=== PATIENT | male | born 1950 | race African-American/Black ===

== ENCOUNTER 2019-08-16 07:42 | Emergency (ER) | payer MEDICARE, MEDICAID ==
[~2019-08-16] VITALS: Ht 165.1 cm; Wt 115.0 kg
[~2019-08-16 07:42] MED LIST: ASPI-1497 PO; ATEN50TA PO; CLON0.2T PO; IBUP-2030 PO; INDA1.255 PO; LOSA100T32 PO; SIMV-43 PO; SIMV-46 PO
[2019-08-16] MEDS ORDERED: MAGNESIUM/ALUMINUM HYDROXIDE/SIMETHICONE 30ML UDC PO STA (09:44)
[2019-08-16] MEDS ORDERED: ONDANSETRON HCL 4MG/2ML INJ IV STA (09:44)
[2019-08-16 10:21] LABS: BASOPHILS % 1.4 % (0.0-2.0); EOSINOPHILS % 3.7 % (0.0-5.0); HEMATOCRIT. 37.3 % (42.0-52.0); HEMOGLOBIN. 11.2 g/dL (14.0-18.0); LYMPHOCYTES % 22.9 % (20.0-50.0); MEAN CORPUSCULAR HEMOGLOBIN 21.7 pg (28.0-32.0); MEAN CORPUSCULAR VOLUME 72.4 fL (80.0-94.0); MEAN PLATELET VOLUME 8.6 fl (7.4-10.4); MONOCYTES % 8.5 % (2.0-8.0); NEUTROPHILS % 63.5 % (40.0-76.0); PLATELET 262 x1000/uL (130-400); RED BLOOD CELL COUNT 5.15 mill/uL (4.7-6.1)
[2019-08-16 10:27] LABS: CHLORIDE 110 mEq/L (98-107)
[2019-08-16 10:29] LABS: INR 1.1; PROTHROMBIN TIME 10.9 sec (9.6-11.0)
[2019-08-16] MEDS ORDERED: FUROSEMIDE 40MG/4ML VIAL IV ONE (12:30)
[2019-08-16] MEDS ORDERED: ENALAPRIL 1.25MG/ML VIAL 1ML IV ONE (12:30)
[2019-08-16 14:28] LABS: CLARITY URINE CLEAR (CLEAR); COLOR URINE YELLOW (YELLOW); KETONES URINE NEGATIVE (NEGATIVE); LEUKOCYTE ESTERASE URINE TRACE (NEGATIVE); NITRITE URINE NEGATIVE (NEGATIVE); OCCULT BLOOD URINE NEGATIVE (NEGATIVE); PROTEIN URINE 1+ (NEGATIVE); SPECIFIC GRAVITY URINE 1.018 (1.005-1.030)
[2019-08-16 14:35] VITALS: BP 160/98
== END 2019-08-16 15:40 | disposition home or self-care (01) ==
LOC: ER 08:19
DX: I11.0 Hypertensive heart disease with heart failure (principal); I50.9 Heart failure, unspecified; I25.2 Old myocardial infarction; Z79.899 Other long term (current) drug therapy
CPT/HCPCS: 36415; 71045; 80053; 81003; 83690; 83880; 84484; 85025; 85610; 93005; 96374; 96375; 99284; J1940; J2405

== ENCOUNTER 2019-09-29 03:39 | Inpatient (IN) | payer MEDICARE, MEDICAID ==
[~2019-09-29] VITALS: Ht 165.1 cm; Wt 121.1 kg
[2019-09-29] VITALS (48 sets, daily range): BP systolic 105–214; BP diastolic 59–146
[2019-09-29] MEDS ORDERED: ALTEPLASE 100MG/VIAL IV NR (04:30)
[2019-09-29] MEDS ORDERED: ALTEPLASE 100MG/VIAL IV ONE ×2 (04:30)
[2019-09-29] MEDS ORDERED: CONTAINER EMPTY IV NR (04:30)
[2019-09-29] MEDS ORDERED: ALTEPLASE IV NR (04:30)
[2019-09-29 04:31] LABS: INR 0.9; PROTHROMBIN TIME 10.2 sec (9.6-11.0)
[2019-09-29 04:32] LABS: CHLORIDE 104 mEq/L (98-107)
[2019-09-29 04:40] LABS: ETHANOL BLOOD < 10 mg/dL
[2019-09-29 04:41] LABS: BASOPHILS % 1.1 % (0.0-2.0); HEMATOCRIT. 41.1 % (42.0-52.0); HEMOGLOBIN. 12.6 g/dL (14.0-18.0); LYMPHOCYTES % 26.1 % (20.0-50.0); MEAN CORPUSCULAR HEMOGLOBIN 21.6 pg (28.0-32.0); MEAN CORPUSCULAR VOLUME 70.7 fL (80.0-94.0); MEAN PLATELET VOLUME 9.4 fl (7.4-10.4); MONOCYTES % 7.5 % (2.0-8.0); NEUTROPHILS % 64.3 % (40.0-76.0); PLATELET 204 x1000/uL (130-400); RED BLOOD CELL COUNT 5.82 mill/uL (4.7-6.1); RED CELL DISTRIBUTION WIDTH 19.5 % (11.6-14.6)
[2019-09-29 04:42] LABS: LDL CHOLESTEROL 130 mg/dL (5-100)
[2019-09-29 04:43] LABS: CREATINE KINASE 312 IU/L (39-308)
[2019-09-29] MEDS ORDERED: LABETALOL 5MG/ML SYR 20 MG/4 ML SYRINGE IV ONE (04:45)
[2019-09-29] MEDS ORDERED: *NO ASPIRIN X 24 HOURS XX SCH (05:00)
[2019-09-29] MEDS ORDERED: DOCUSATE SODIUM 100MG CAPSULE PO PRN (09:45)
[2019-09-29] MEDS ORDERED: NITROGLYCERIN 0.4MG TABLET SL SL PRN (09:45)
[2019-09-29] MEDS ORDERED: DEXTROSE 50% WATER 50ML SYRINGE IV PRN (09:45)
[2019-09-29] MEDS ORDERED: IPRATROPIUM/ALBUTEROL 0.5-3(2.5)MG/3ML NEB NEB PRN (09:45)
[2019-09-29] MEDS ORDERED: NA PHOS,M-B/NA PHOS,DI-BA ENEMA 118ML PR PRN (09:45)
[2019-09-29] MEDS ORDERED: CLONIDINE 0.1MG TABLET PO PRN (09:45)
[2019-09-29] MEDS ORDERED: ZOLPIDEM TARTRATE 5MG TABLET PO PRN (09:45)
[2019-09-29] MEDS ORDERED: TRAMADOL 50MG TABLET PO PRN (09:45)
[2019-09-29] MEDS ORDERED: MAGNESIUM/ALUMINUM HYDROXIDE/SIMETHICONE 30ML UDC PO PRN (09:45)
[2019-09-29] MEDS: INSULIN LISPRO 100 UNITS/ML SUBCUT SCH ×3 (13:02→21:06)
[2019-09-29] MEDS: BLOOD SUGAR DIAGNOSTIC STRIP TEST SCH ×3 (13:02→20:55)
[2019-09-29] MEDS: FAMOTIDINE 20MG TABLET PO SCH (14:00)
[2019-09-29 15:43] LABS: CREATINE KINASE 313 IU/L (39-308); CREATINE KINASE MB FRACTION 5.9 ng/mL (0.5-3.6)
[2019-09-29] MEDS: INSULIN GLARGINE UD 100 UNITS/ML SYR SUBCUT SCH (17:47)
[2019-09-29] MEDS: ATORVASTATIN CALCIUM 40MG TABLET PO SCH (21:05)
[2019-09-29] MEDS: ONDANSETRON HCL 4MG/2ML INJ IV PRN (21:22)
[2019-09-29 21:35] LABS: T4 FREE 0.95 ng/dL (0.76-1.46)
[2019-09-29 21:56] LABS: FOLIC ACID (FOLATE) SERUM 12.2 ng/mL (>5.38)
[2019-09-30] VITALS (94 sets, daily range): BP systolic 99–185; BP diastolic 30–114
[2019-09-30 00:09] LABS: CLARITY URINE CLEAR (CLEAR); COLOR URINE YELLOW (YELLOW); KETONES URINE NEGATIVE (NEGATIVE); LEUKOCYTE ESTERASE URINE NEGATIVE (NEGATIVE); NITRITE URINE NEGATIVE (NEGATIVE); OCCULT BLOOD URINE 2+ (NEGATIVE); PH URINE 6.5 (4.5-8.0); PROTEIN URINE 1+ (NEGATIVE)
[2019-09-30 00:13] LABS: CREATINE KINASE 468 IU/L (39-308)
[2019-09-30 00:14] LABS: CREATINE KINASE MB FRACTION 6.6 ng/mL (0.5-3.6)
[2019-09-30 00:22] LABS: *AMPHETAMINES SCREEN URINE NEGATIVE (NEGATIVE); *BARBITURATES SCREEN URINE NEGATIVE (NEGATIVE); *BENZODIAZEPINES SCREEN URINE NEGATIVE (NEGATIVE); *COCAINE SCREEN URINE NEGATIVE (NEGATIVE); OPIATES URINE SCREEN NEGATIVE (NEGATIVE)
[2019-09-30 00:24] LABS: CANNABINOID URINE SCREEN NEGATIVE (NEGATIVE); PHENCYCLIDINE URINE SCREEN NEGATIVE (NEGATIVE)
[2019-09-30] MEDS: INSULIN LISPRO 100 UNITS/ML SUBCUT SCH ×4 (06:15→20:59)
[2019-09-30] MEDS: BLOOD SUGAR DIAGNOSTIC STRIP TEST SCH ×4 (06:44→20:48)
[2019-09-30] MEDS: FAMOTIDINE 20MG TABLET PO SCH (10:15)
[2019-09-30] MEDS: INSULIN GLARGINE UD 100 UNITS/ML SYR SUBCUT SCH (10:15)
[2019-09-30] MEDS: CYANOCOBALAMIN 1000MCG/ML VIAL IM SCH (15:56)
[2019-09-30] MEDS: ATORVASTATIN CALCIUM 40MG TABLET PO SCH (20:58)
[2019-10-01] VITALS (93 sets, daily range): BP systolic 96–169; BP diastolic 23–113
[2019-10-01] MEDS: BLOOD SUGAR DIAGNOSTIC STRIP TEST SCH ×4 (05:45→20:53)
[2019-10-01] MEDS: INSULIN LISPRO 100 UNITS/ML SUBCUT SCH ×4 (05:46→21:00)
[2019-10-01] MEDS ORDERED: CLOPIDOGREL 75MG TABLET PO SCH (09:00)
[2019-10-01] MEDS: FAMOTIDINE 20MG TABLET PO SCH (10:22)
[2019-10-01] MEDS: CYANOCOBALAMIN 1000MCG/ML VIAL IM SCH (10:22)
[2019-10-01] MEDS ORDERED: INSULIN GLARGINE UD 100 UNITS/ML SYR SUBCUT NR (12:00)
[2019-10-01] MEDS: ONDANSETRON HCL 4MG/2ML INJ IV PRN (14:49)
[2019-10-01 15:15] LABS: METHADONE URINE SCREEN NEGATIVE (NEGATIVE)
[2019-10-01] MEDS ORDERED: DILTIAZEM HCL 125 MG in DEXT 5% WATER 100 ML IV PRN (15:15)
[2019-10-01] MEDS ORDERED: DIGOXIN 500MCG/2ML AMP IV NR (15:15)
[2019-10-01 15:26] LABS: BASOPHILS % 0.7 % (0.0-2.0); EOSINOPHILS % 0.1 % (0.0-5.0); HEMATOCRIT. 37.6 % (42.0-52.0); HEMOGLOBIN. 11.2 g/dL (14.0-18.0); LYMPHOCYTES % 13.4 % (20.0-50.0); MEAN CORPUSCULAR HEMOGLOBIN 21.1 pg (28.0-32.0); MEAN CORPUSCULAR VOLUME 70.8 fL (80.0-94.0); MEAN PLATELET VOLUME 9.1 fl (7.4-10.4); MONOCYTES % 12.8 % (2.0-8.0); PLATELET 211 x1000/uL (130-400); RED BLOOD CELL COUNT 5.32 mill/uL (4.7-6.1); RED CELL DISTRIBUTION WIDTH 19.3 % (11.6-14.6)
[2019-10-01 15:29] LABS: CHLORIDE 103 mEq/L (98-107)
[2019-10-01] MEDS: DILTIAZEM HCL 125 MG in DEXT 5% WATER 100 ML IV PRN (15:40)
[2019-10-01] MEDS: SODIUM CHLORIDE 0.9% 1,000 ML IV SCH (16:57)
[2019-10-01] MEDS: ATORVASTATIN CALCIUM 40MG TABLET PO SCH (20:57)
[2019-10-02] VITALS (71 sets, daily range): BP systolic 92–163; BP diastolic 52–109
[2019-10-02] MEDS: ONDANSETRON HCL 4MG/2ML INJ IV PRN (03:12)
[2019-10-02] MEDS: SODIUM CHLORIDE 0.9% 1,000 ML IV SCH ×2 (04:37→19:40)
[2019-10-02 05:41] LABS: CHLORIDE 104 mEq/L (98-107)
[2019-10-02 05:44] LABS: BASOPHILS % 0.7 % (0.0-2.0); EOSINOPHILS % 0.4 % (0.0-5.0); HEMATOCRIT. 36.2 % (42.0-52.0); HEMOGLOBIN. 10.7 g/dL (14.0-18.0); LYMPHOCYTES % 17.1 % (20.0-50.0); MEAN CORPUSCULAR HEMOGLOBIN 21.4 pg (28.0-32.0); MEAN PLATELET VOLUME 9.5 fl (7.4-10.4); MONOCYTES % 13.6 % (2.0-8.0); NEUTROPHILS % 68.2 % (40.0-76.0); PLATELET 199 x1000/uL (130-400); RED BLOOD CELL COUNT 5.03 mill/uL (4.7-6.1); RED CELL DISTRIBUTION WIDTH 19.1 % (11.6-14.6)
[2019-10-02] MEDS: BLOOD SUGAR DIAGNOSTIC STRIP TEST SCH ×4 (06:15→20:55)
[2019-10-02] MEDS: INSULIN LISPRO 100 UNITS/ML SUBCUT SCH ×4 (06:22→20:55)
[2019-10-02] MEDS: FAMOTIDINE 20MG TABLET PO SCH (08:23)
[2019-10-02] MEDS: CYANOCOBALAMIN 1000MCG/ML VIAL IM SCH (08:23)
[2019-10-02] MEDS: TAMSULOSIN HCL 0.4MG SR CAPSULE PO SCH ×2 (08:57→20:56)
[2019-10-02] MEDS: DILTIAZEM HCL 60MG TABLET PO SCH ×2 (08:57→20:54)
[2019-10-02] MEDS: ENOXAPARIN 100MG/ML SYR SUBCUT SCH ×2 (08:59→20:54)
[2019-10-02] MEDS: DUTASTERIDE 0.5MG CAPSULE PO SCH (09:00)
[2019-10-02] MEDS: INSULIN GLARGINE UD 100 UNITS/ML SYR SUBCUT SCH (11:08)
[2019-10-02] MEDS: ATORVASTATIN CALCIUM 40MG TABLET PO SCH (20:54)
[2019-10-03] VITALS (40 sets, daily range): BP systolic 125–175; BP diastolic 66–145
[2019-10-03] MEDS: ONDANSETRON HCL 4MG/2ML INJ IV PRN (00:54)
[2019-10-03] MEDS: BLOOD SUGAR DIAGNOSTIC STRIP TEST SCH ×4 (05:59→21:04)
[2019-10-03] MEDS: INSULIN LISPRO 100 UNITS/ML SUBCUT SCH ×4 (06:00→21:00)
[2019-10-03] MEDS: FAMOTIDINE 20MG TABLET PO SCH (08:53)
[2019-10-03] MEDS: CYANOCOBALAMIN 1000MCG/ML VIAL IM SCH (08:54)
[2019-10-03] MEDS: DILTIAZEM HCL 60MG TABLET PO SCH ×2 (08:54→21:09)
[2019-10-03] MEDS: ENOXAPARIN 100MG/ML SYR SUBCUT SCH ×2 (08:55→21:09)
[2019-10-03] MEDS: SODIUM CHLORIDE 0.9% 1,000 ML IV SCH ×2 (09:00→22:30)
[2019-10-03] MEDS: TAMSULOSIN HCL 0.4MG SR CAPSULE PO SCH ×2 (09:00→20:52)
[2019-10-03] MEDS: DUTASTERIDE 0.5MG CAPSULE PO SCH (09:00)
[2019-10-03] MEDS: INSULIN GLARGINE UD 100 UNITS/ML SYR SUBCUT SCH (10:46)
[2019-10-03] MEDS: HYDRALAZINE HCL 50MG TABLET NG SCH ×2 (14:42→21:13)
[2019-10-03] MEDS: ATORVASTATIN CALCIUM 40MG TABLET PO SCH (21:08)
[2019-10-04] VITALS (48 sets, daily range): BP systolic 117–199; BP diastolic 44–129
[2019-10-04] MEDS: HYDRALAZINE HCL 50MG TABLET NG SCH ×3 (05:31→21:23)
[2019-10-04] MEDS: BLOOD SUGAR DIAGNOSTIC STRIP TEST SCH ×4 (05:31→21:25)
[2019-10-04] MEDS: INSULIN LISPRO 100 UNITS/ML SUBCUT SCH ×4 (06:01→21:28)
[2019-10-04] MEDS: DUTASTERIDE 0.5MG CAPSULE PO SCH (09:00)
[2019-10-04] MEDS: TAMSULOSIN HCL 0.4MG SR CAPSULE PO SCH ×2 (09:00→21:00)
[2019-10-04] MEDS: FAMOTIDINE 20MG TABLET PO SCH (09:18)
[2019-10-04] MEDS: ENOXAPARIN 100MG/ML SYR SUBCUT SCH ×2 (09:19→21:29)
[2019-10-04] MEDS: CYANOCOBALAMIN 1000MCG/ML VIAL IM SCH (09:20)
[2019-10-04] MEDS: INSULIN GLARGINE UD 100 UNITS/ML SYR SUBCUT SCH (10:15)
[2019-10-04] MEDS: DILTIAZEM HCL 60MG TABLET PO SCH ×2 (10:17→21:25)
[2019-10-04] MEDS: GUAIFENESIN 200MG/10ML SUGAR FREE UDC PO PRN ×2 (10:48→15:50)
[2019-10-04] MEDS: SODIUM CHLORIDE 0.9% 1,000 ML IV SCH (12:09)
[2019-10-04] MEDS: ATORVASTATIN CALCIUM 40MG TABLET PO SCH (21:24)
[2019-10-05] VITALS (35 sets, daily range): BP systolic 88–185; BP diastolic 55–115
[2019-10-05] MEDS: SODIUM CHLORIDE 0.9% 1,000 ML IV SCH ×2 (01:20→16:18)
[2019-10-05] MEDS: DILTIAZEM HCL 125 MG in DEXT 5% WATER 100 ML IV PRN (03:27)
[2019-10-05] MEDS: HYDRALAZINE HCL 50MG TABLET NG SCH ×3 (06:31→22:48)
[2019-10-05] MEDS: BLOOD SUGAR DIAGNOSTIC STRIP TEST SCH ×4 (06:32→20:59)
[2019-10-05] MEDS: INSULIN LISPRO 100 UNITS/ML SUBCUT SCH ×4 (06:34→20:56)
[2019-10-05] MEDS: TAMSULOSIN HCL 0.4MG SR CAPSULE PO SCH ×2 (09:00→21:00)
[2019-10-05] MEDS: DILTIAZEM HCL 60MG TABLET PO SCH ×2 (09:09→22:44)
[2019-10-05] MEDS: CYANOCOBALAMIN 1000MCG/ML VIAL IM SCH (09:09)
[2019-10-05] MEDS: FAMOTIDINE 20MG TABLET PO SCH (09:10)
[2019-10-05] MEDS: DUTASTERIDE 0.5MG CAPSULE PO SCH (09:10)
[2019-10-05] MEDS: ENOXAPARIN 100MG/ML SYR SUBCUT SCH ×2 (09:11→20:59)
[2019-10-05] MEDS: INSULIN GLARGINE UD 100 UNITS/ML SYR SUBCUT SCH (10:58)
[2019-10-05] MEDS: ATORVASTATIN CALCIUM 40MG TABLET PO SCH (22:43)
[2019-10-06] VITALS (105 sets, daily range): BP systolic 62–152; BP diastolic 37–102
[2019-10-06] MEDS ORDERED: PROPOFOL 10MG/ML 100ML 100 ML IV ONE (02:15)
[2019-10-06 02:31] LABS: BG BASE EXCESS -3.3 mmol/L (-2.0-2.0); BG CARBOXYHEMOGLOBIN 0.8 % (0.5-1.5); BG DEOXYHEMOGLOBIN 0.1 % (0.0-5.0); BG FRACTION INSPIRED OXYGEN 100; BG HCO3 ACT 23.4 mmol/L (22.0-26.0); BG METHEMOGLOBIN 0.4 % (0.0-1.5); BG OXYGEN SATURATION 99.9 % (92.0-98.5); BG OXYHEMOGLOBIN 98.7 % (94.0-97.0); BG PCO2 48.8 mmHg (35.0-45.0); BG PH 7.298 (7.350-7.450); BG PO2 406.6 mmHg (75.0-100.0); BG SAMPLE SITE LEFT FEMORAL; BG TIDAL VOLUME(mL) 600 mL; BG TOTAL HEMOGLOBIN 11.3 g/dL (12.0-18.0); BG VENT MODE VENT - A/C; BG VENT RATE 14 set
[2019-10-06] MEDS: NOREPINEPHRINE 8 MG in DEXT 5% WATER 242 ML IV PRN ×3 (02:40→16:34)
[2019-10-06] MEDS: SODIUM CHLORIDE 0.9% 1,000 ML IV SCH ×2 (03:32→16:34)
[2019-10-06] MEDS ORDERED: PHENYLEPHRINE 40 MG in DEXT 5% WATER 246 ML IV PRN (04:00)
[2019-10-06 05:49] LABS: HEMATOCRIT. 38.5 % (42.0-52.0); HEMOGLOBIN. 11.1 g/dL (14.0-18.0); MEAN CORPUSCULAR HEMOGLOBIN 21.5 pg (28.0-32.0); MEAN CORPUSCULAR VOLUME 74.5 fL (80.0-94.0); MEAN PLATELET VOLUME 9.5 fl (7.4-10.4); PLATELET 277 x1000/uL (130-400); RED BLOOD CELL COUNT 5.16 mill/uL (4.7-6.1); RED CELL DISTRIBUTION WIDTH 19.1 % (11.6-14.6)
[2019-10-06] MEDS: HYDRALAZINE HCL 50MG TABLET NG SCH ×3 (06:00→21:17)
[2019-10-06] MEDS: INSULIN LISPRO 100 UNITS/ML SUBCUT SCH ×4 (06:05→21:18)
[2019-10-06] MEDS: BLOOD SUGAR DIAGNOSTIC STRIP TEST SCH ×4 (06:06→21:00)
[2019-10-06 06:14] LABS: CHLORIDE 104 mEq/L (98-107)
[2019-10-06 06:23] LABS: CREATINE KINASE 518 IU/L (39-308)
[2019-10-06 07:05] LABS: PLATELET ESTIMATE NORMAL
[2019-10-06] MEDS: DUTASTERIDE 0.5MG CAPSULE PO SCH (08:46)
[2019-10-06] MEDS: FAMOTIDINE 20MG TABLET PO SCH (08:46)
[2019-10-06] MEDS: PROPOFOL 10MG/ML 100ML 100 ML IV PRN ×3 (08:46→21:19)
[2019-10-06] MEDS: TAMSULOSIN HCL 0.4MG SR CAPSULE PO SCH ×2 (08:47→21:18)
[2019-10-06] MEDS: CYANOCOBALAMIN 1000MCG/ML VIAL IM SCH (08:47)
[2019-10-06] MEDS: DILTIAZEM HCL 60MG TABLET PO SCH ×2 (08:48→21:17)
[2019-10-06] MEDS: ENOXAPARIN 100MG/ML SYR SUBCUT SCH ×2 (08:49→21:19)
[2019-10-06 09:03] LABS: BG BASE EXCESS 3.4 mmol/L (-2.0-2.0); BG CARBOXYHEMOGLOBIN 1.4 % (0.5-1.5); BG DEOXYHEMOGLOBIN 1.9 % (0.0-5.0); BG FRACTION INSPIRED OXYGEN 40; BG HCO3 ACT 25.2 mmol/L (22.0-26.0); BG METHEMOGLOBIN 0.1 % (0.0-1.5); BG OXYGEN SATURATION 98.1 % (92.0-98.5); BG OXYHEMOGLOBIN 96.6 % (94.0-97.0); BG PH 7.543 (7.350-7.450); BG PO2 89.9 mmHg (75.0-100.0); BG SAMPLE SITE RIGHT RADIAL; BG TIDAL VOLUME(mL) 600 mL; BG TOTAL HEMOGLOBIN 12.2 g/dL (12.0-18.0); BG VENT MODE VENT - A/C; BG VENT RATE 18 set
[2019-10-06] MEDS: LEVETIRACETAM 500MG PREMIX 100 ML IV SCH ×2 (11:39→21:16)
[2019-10-06] MEDS: INSULIN GLARGINE UD 100 UNITS/ML SYR SUBCUT SCH (11:40)
[2019-10-06] MEDS ORDERED: PROPOFOL 10MG/ML 100ML 100 ML IV PRN (11:45)
[2019-10-06] MEDS: IPRATROPIUM/ALBUTEROL 0.5-3(2.5)MG/3ML NEB HHN SCH ×2 (12:36→21:12)
[2019-10-06] MEDS: METRONIDAZOLE 500 MG PREMIX 100 ML IV SCH ×2 (13:22→21:16)
[2019-10-06] MEDS: CEFEPIME 1,000 MG in DEXTROSE 5% WATER 50 ML IV SCH ×2 (13:22→23:00)
[2019-10-06] MEDS: ATORVASTATIN CALCIUM 40MG TABLET PO SCH (21:17)
[2019-10-07] VITALS (73 sets, daily range): BP systolic 90–125; BP diastolic 53–83
[2019-10-07] MEDS: IPRATROPIUM/ALBUTEROL 0.5-3(2.5)MG/3ML NEB HHN SCH ×4 (01:35→21:03)
[2019-10-07] MEDS: PROPOFOL 10MG/ML 100ML 100 ML IV PRN ×4 (03:00→23:59)
[2019-10-07] MEDS: HYDRALAZINE HCL 50MG TABLET NG SCH ×3 (05:23→22:00)
[2019-10-07] MEDS: METRONIDAZOLE 500 MG PREMIX 100 ML IV SCH ×3 (05:24→21:41)
[2019-10-07] MEDS: SODIUM CHLORIDE 0.9% 1,000 ML IV SCH ×2 (05:26→21:55)
[2019-10-07 05:31] LABS: CHLORIDE 109 mEq/L (98-107)
[2019-10-07 05:37] LABS: BASOPHILS % 0.8 % (0.0-2.0); EOSINOPHILS % 1.8 % (0.0-5.0); HEMATOCRIT. 31.5 % (42.0-52.0); HEMOGLOBIN. 9.2 g/dL (14.0-18.0); LYMPHOCYTES % 8.3 % (20.0-50.0); MEAN CORPUSCULAR HEMOGLOBIN 21.3 pg (28.0-32.0); MEAN CORPUSCULAR VOLUME 72.6 fL (80.0-94.0); MEAN PLATELET VOLUME 8.5 fl (7.4-10.4); MONOCYTES % 11.4 % (2.0-8.0); NEUTROPHILS % 77.7 % (40.0-76.0); PLATELET 244 x1000/uL (130-400); RED BLOOD CELL COUNT 4.34 mill/uL (4.7-6.1); RED CELL DISTRIBUTION WIDTH 19.3 % (11.6-14.6)
[2019-10-07 05:43] LABS: PHOSPHORUS 2.1 mg/dL (2.5-4.9)
[2019-10-07] MEDS: BLOOD SUGAR DIAGNOSTIC STRIP TEST SCH ×4 (06:02→21:00)
[2019-10-07] MEDS: INSULIN LISPRO 100 UNITS/ML SUBCUT SCH ×3 (06:03→21:00)
[2019-10-07] MEDS: CEFEPIME 1,000 MG in DEXTROSE 5% WATER 50 ML IV SCH ×2 (08:23→21:41)
[2019-10-07] MEDS: LEVETIRACETAM 500MG PREMIX 100 ML IV SCH ×2 (08:23→21:42)
[2019-10-07] MEDS: DUTASTERIDE 0.5MG CAPSULE PO SCH (08:24)
[2019-10-07] MEDS: ENOXAPARIN 100MG/ML SYR SUBCUT SCH ×2 (08:24→21:59)
[2019-10-07] MEDS: TAMSULOSIN HCL 0.4MG SR CAPSULE PO SCH ×2 (08:25→21:56)
[2019-10-07] MEDS: FAMOTIDINE 20MG TABLET PO SCH ×2 (08:26→10:11)
[2019-10-07 08:47] LABS: BG BASE EXCESS 1.1 mmol/L (-2.0-2.0); BG CARBOXYHEMOGLOBIN 0.3 % (0.5-1.5); BG FRACTION INSPIRED OXYGEN 40; BG HCO3 ACT 24.3 mmol/L (22.0-26.0); BG METHEMOGLOBIN 0.2 % (0.0-1.5); BG OXYHEMOGLOBIN 98.5 % (94.0-97.0); BG PCO2 33.5 mmHg (35.0-45.0); BG PH 7.479 (7.350-7.450); BG PO2 162.5 mmHg (75.0-100.0); BG SAMPLE SITE RIGHT RADIAL; BG TIDAL VOLUME(mL) 550 mL; BG TOTAL HEMOGLOBIN 9.5 g/dL (12.0-18.0); BG VENT MODE VENT - A/C; BG VENT RATE 14 set
[2019-10-07] MEDS: DILTIAZEM HCL 60MG TABLET PO SCH ×2 (09:00→21:57)
[2019-10-07] MEDS: INSULIN GLARGINE UD 100 UNITS/ML SYR SUBCUT SCH (10:12)
[2019-10-07] MEDS: ATORVASTATIN CALCIUM 40MG TABLET PO SCH (21:56)
[2019-10-08] VITALS (49 sets, daily range): BP systolic 90–137; BP diastolic 52–81
[2019-10-08] MEDS: IPRATROPIUM/ALBUTEROL 0.5-3(2.5)MG/3ML NEB HHN SCH ×4 (02:04→20:17)
[2019-10-08] MEDS: HYDRALAZINE HCL 50MG TABLET NG SCH ×3 (06:00→22:00)
[2019-10-08] MEDS: BLOOD SUGAR DIAGNOSTIC STRIP TEST SCH ×4 (07:00→21:00)
[2019-10-08] MEDS: INSULIN LISPRO 100 UNITS/ML SUBCUT SCH ×4 (07:00→21:00)
[2019-10-08] MEDS: PROPOFOL 10MG/ML 100ML 100 ML IV PRN ×3 (07:02→18:20)
[2019-10-08] MEDS: METRONIDAZOLE 500 MG PREMIX 100 ML IV SCH ×3 (07:04→21:12)
[2019-10-08] MEDS: SODIUM CHLORIDE 0.9% 1,000 ML IV SCH (08:08)
[2019-10-08] MEDS: LEVETIRACETAM 500MG PREMIX 100 ML IV SCH ×2 (08:08→21:12)
[2019-10-08] MEDS: CEFEPIME 1,000 MG in DEXTROSE 5% WATER 50 ML IV SCH ×2 (08:08→21:12)
[2019-10-08] MEDS: TAMSULOSIN HCL 0.4MG SR CAPSULE PO SCH ×2 (08:09→21:47)
[2019-10-08] MEDS: ENOXAPARIN 100MG/ML SYR SUBCUT SCH ×2 (08:09→21:46)
[2019-10-08] MEDS: DUTASTERIDE 0.5MG CAPSULE PO SCH (08:09)
[2019-10-08] MEDS: DILTIAZEM HCL 60MG TABLET PO SCH ×2 (08:09→21:00)
[2019-10-08] MEDS: FAMOTIDINE 20MG TABLET PO SCH (08:10)
[2019-10-08 08:49] LABS: BG BASE EXCESS -1.1 mmol/L (-2.0-2.0); BG CARBOXYHEMOGLOBIN 0.6 % (0.5-1.5); BG DEOXYHEMOGLOBIN 0.7 % (0.0-5.0); BG FRACTION INSPIRED OXYGEN 40; BG HCO3 ACT 22.7 mmol/L (22.0-26.0); BG METHEMOGLOBIN 0.3 % (0.0-1.5); BG OXYGEN SATURATION 99.3 % (92.0-98.5); BG OXYHEMOGLOBIN 98.4 % (94.0-97.0); BG PCO2 34.9 mmHg (35.0-45.0); BG PH 7.431 (7.350-7.450); BG PO2 161.9 mmHg (75.0-100.0); BG SAMPLE SITE RIGHT RADIAL; BG TIDAL VOLUME(mL) 550 mL; BG TOTAL HEMOGLOBIN 12.5 g/dL (12.0-18.0); BG VENT MODE VENT - A/C; BG VENT RATE 14 set
[2019-10-08] MEDS: INSULIN GLARGINE UD 100 UNITS/ML SYR SUBCUT SCH (09:48)
[2019-10-08] MEDS: ATORVASTATIN CALCIUM 40MG TABLET PO SCH (21:13)
[2019-10-09] VITALS (49 sets, daily range): BP systolic 85–152; BP diastolic 57–84
[2019-10-09] MEDS: PROPOFOL 10MG/ML 100ML 100 ML IV PRN ×5 (00:41→21:01)
[2019-10-09] MEDS: IPRATROPIUM/ALBUTEROL 0.5-3(2.5)MG/3ML NEB HHN SCH ×4 (01:34→20:48)
[2019-10-09] MEDS: SODIUM CHLORIDE 0.9% 1,000 ML IV SCH ×2 (03:40→12:07)
[2019-10-09] MEDS: HYDRALAZINE HCL 50MG TABLET NG SCH ×3 (06:00→22:00)
[2019-10-09] MEDS: METRONIDAZOLE 500 MG PREMIX 100 ML IV SCH ×3 (06:35→21:07)
[2019-10-09] MEDS: BLOOD SUGAR DIAGNOSTIC STRIP TEST SCH ×4 (06:35→21:00)
[2019-10-09] MEDS: INSULIN LISPRO 100 UNITS/ML SUBCUT SCH ×4 (07:00→21:00)
[2019-10-09 07:48] LABS: BG BASE EXCESS -1.1 mmol/L (-2.0-2.0); BG CARBOXYHEMOGLOBIN 0.5 % (0.5-1.5); BG DEOXYHEMOGLOBIN 0.8 % (0.0-5.0); BG HCO3 ACT 23.5 mmol/L (22.0-26.0); BG METHEMOGLOBIN 0.1 % (0.0-1.5); BG OXYGEN SATURATION 99.2 % (92.0-98.5); BG OXYHEMOGLOBIN 98.6 % (94.0-97.0); BG PCO2 38.5 mmHg (35.0-45.0); BG PH 7.403 (7.350-7.450); BG PO2 150.7 mmHg (75.0-100.0); BG SAMPLE SITE RIGHT RADIAL; BG TIDAL VOLUME(mL) 550 mL; BG TOTAL HEMOGLOBIN 9.4 g/dL (12.0-18.0); BG VENT MODE VENT - A/C; BG VENT RATE 14 set
[2019-10-09] MEDS: CEFEPIME 1,000 MG in DEXTROSE 5% WATER 50 ML IV SCH ×2 (08:32→20:44)
[2019-10-09] MEDS: LEVETIRACETAM 500MG PREMIX 100 ML IV SCH ×2 (08:32→20:44)
[2019-10-09] MEDS: FAMOTIDINE 20MG TABLET PO SCH (08:34)
[2019-10-09] MEDS: DOCUSATE SODIUM SUGAR FREE 100MG/10ML UDC NG PRN (08:34)
[2019-10-09] MEDS: TAMSULOSIN HCL 0.4MG SR CAPSULE PO SCH ×2 (08:34→20:59)
[2019-10-09] MEDS: DUTASTERIDE 0.5MG CAPSULE PO SCH (08:34)
[2019-10-09] MEDS: DILTIAZEM HCL 60MG TABLET PO SCH ×2 (08:34→21:00)
[2019-10-09] MEDS: ENOXAPARIN 100MG/ML SYR SUBCUT SCH ×2 (08:35→21:06)
[2019-10-09] MEDS: INSULIN GLARGINE UD 100 UNITS/ML SYR SUBCUT SCH (09:43)
[2019-10-09] MEDS: ATORVASTATIN CALCIUM 40MG TABLET PO SCH (20:58)
[2019-10-10] VITALS (48 sets, daily range): BP systolic 97–124; BP diastolic 53–74
[2019-10-10] MEDS: PROPOFOL 10MG/ML 100ML 100 ML IV PRN ×2 (02:04→06:09)
[2019-10-10] MEDS: IPRATROPIUM/ALBUTEROL 0.5-3(2.5)MG/3ML NEB HHN SCH ×3 (04:19→20:05)
[2019-10-10] MEDS: METRONIDAZOLE 500 MG PREMIX 100 ML IV SCH ×3 (05:39→21:41)
[2019-10-10] MEDS: HYDRALAZINE HCL 50MG TABLET NG SCH ×3 (06:00→22:26)
[2019-10-10] MEDS: SODIUM CHLORIDE 0.9% 1,000 ML IV SCH ×2 (06:00→13:59)
[2019-10-10] MEDS: INSULIN LISPRO 100 UNITS/ML SUBCUT SCH ×4 (07:00→21:00)
[2019-10-10] MEDS: BLOOD SUGAR DIAGNOSTIC STRIP TEST SCH ×4 (07:12→21:17)
[2019-10-10 07:36] LABS: BG BASE EXCESS -3.7 mmol/L (-2.0-2.0); BG DEOXYHEMOGLOBIN 1.1 % (0.0-5.0); BG FRACTION INSPIRED OXYGEN 40; BG HCO3 ACT 20.4 mmol/L (22.0-26.0); BG METHEMOGLOBIN 0.5 % (0.0-1.5); BG OXYGEN SATURATION 98.9 % (92.0-98.5); BG OXYHEMOGLOBIN 98.4 % (94.0-97.0); BG PCO2 32.8 mmHg (35.0-45.0); BG PH 7.411 (7.350-7.450); BG SAMPLE SITE RIGHT RADIAL; BG TIDAL VOLUME(mL) 500 mL; BG TOTAL HEMOGLOBIN 8.9 g/dL (12.0-18.0); BG VENT MODE VENT - A/C; BG VENT RATE 14 set
[2019-10-10] MEDS: DUTASTERIDE 0.5MG CAPSULE PO SCH (08:22)
[2019-10-10] MEDS: DILTIAZEM HCL 60MG TABLET PO SCH ×2 (08:22→22:26)
[2019-10-10] MEDS: TAMSULOSIN HCL 0.4MG SR CAPSULE PO SCH ×2 (08:22→20:33)
[2019-10-10] MEDS: DOCUSATE SODIUM SUGAR FREE 100MG/10ML UDC NG PRN (08:24)
[2019-10-10] MEDS: ENOXAPARIN 100MG/ML SYR SUBCUT SCH ×2 (08:25→20:32)
[2019-10-10] MEDS: LEVETIRACETAM 500MG PREMIX 100 ML IV SCH ×2 (08:25→20:33)
[2019-10-10] MEDS: FAMOTIDINE 20MG TABLET PO SCH (08:26)
[2019-10-10] MEDS: CEFEPIME 1,000 MG in DEXTROSE 5% WATER 50 ML IV SCH ×2 (08:30→20:34)
[2019-10-10 09:58] LABS: HEMATOCRIT. 28.3 % (42.0-52.0); HEMOGLOBIN. 8.4 g/dL (14.0-18.0); MEAN CORPUSCULAR HEMOGLOBIN 21.9 pg (28.0-32.0); MEAN CORPUSCULAR VOLUME 73.6 fL (80.0-94.0); MEAN PLATELET VOLUME 8.6 fl (7.4-10.4); PLATELET 245 x1000/uL (130-400); RED BLOOD CELL COUNT 3.84 mill/uL (4.7-6.1); RED CELL DISTRIBUTION WIDTH 20.6 % (11.6-14.6)
[2019-10-10 10:05] LABS: CHLORIDE 116 mEq/L (98-107)
[2019-10-10 10:11] LABS: PHOSPHORUS 2.9 mg/dL (2.5-4.9)
[2019-10-10 10:21] LABS: PLATELET ESTIMATE NORMAL
[2019-10-10] MEDS: INSULIN GLARGINE UD 100 UNITS/ML SYR SUBCUT SCH (10:59)
[2019-10-10] MEDS ORDERED: LACTULOSE 20G/30ML UDC PO NR (11:15)
[2019-10-10] MEDS: MIDAZOLAM HCL 50 MG in DEXTROSE 5% WATER 40 ML IV PRN ×2 (12:32→22:34)
[2019-10-10] MEDS: FENTANYL CITRATE/PF 500 MCG in SODIUM CHLORIDE 0.9% 40 ML IV PRN ×2 (12:33→19:48)
[2019-10-10] MEDS: ATORVASTATIN CALCIUM 40MG TABLET PO SCH (20:33)
[2019-10-11] VITALS (45 sets, daily range): BP systolic 91–132; BP diastolic 55–83
[2019-10-11] MEDS: LACTULOSE 20G/30ML UDC PO PRN (03:30)
[2019-10-11] MEDS: SODIUM CHLORIDE 0.9% 1,000 ML IV SCH ×2 (03:38→17:31)
[2019-10-11] MEDS: IPRATROPIUM/ALBUTEROL 0.5-3(2.5)MG/3ML NEB HHN SCH ×4 (04:11→20:42)
[2019-10-11 05:40] LABS: HEMOGLOBIN. 8.5 g/dL (14.0-18.0); MEAN CORPUSCULAR HEMOGLOBIN 21.9 pg (28.0-32.0); MEAN CORPUSCULAR VOLUME 74.2 fL (80.0-94.0); MEAN PLATELET VOLUME 8.7 fl (7.4-10.4); PLATELET 236 x1000/uL (130-400); RED BLOOD CELL COUNT 3.91 mill/uL (4.7-6.1); RED CELL DISTRIBUTION WIDTH 20.7 % (11.6-14.6)
[2019-10-11] MEDS: FENTANYL CITRATE/PF 500 MCG in SODIUM CHLORIDE 0.9% 40 ML IV PRN ×2 (05:40→18:06)
[2019-10-11 05:42] LABS: CHLORIDE 115 mEq/L (98-107)
[2019-10-11] MEDS: HYDRALAZINE HCL 50MG TABLET NG SCH ×3 (05:59→21:43)
[2019-10-11] MEDS: METRONIDAZOLE 500 MG PREMIX 100 ML IV SCH ×3 (05:59→21:47)
[2019-10-11] MEDS: INSULIN LISPRO 100 UNITS/ML SUBCUT SCH ×4 (06:36→21:00)
[2019-10-11] MEDS: BLOOD SUGAR DIAGNOSTIC STRIP TEST SCH ×4 (06:36→21:34)
[2019-10-11 07:57] LABS: PLATELET ESTIMATE NORMAL
[2019-10-11] MEDS: CEFEPIME 1,000 MG in DEXTROSE 5% WATER 50 ML IV SCH ×2 (08:38→20:24)
[2019-10-11] MEDS: DUTASTERIDE 0.5MG CAPSULE PO SCH (08:38)
[2019-10-11] MEDS: LEVETIRACETAM 500MG PREMIX 100 ML IV SCH ×2 (08:38→20:24)
[2019-10-11] MEDS: DILTIAZEM HCL 60MG TABLET PO SCH ×2 (08:40→20:26)
[2019-10-11] MEDS: FAMOTIDINE 20MG TABLET PO SCH (08:40)
[2019-10-11] MEDS: ENOXAPARIN 100MG/ML SYR SUBCUT SCH ×2 (08:40→20:26)
[2019-10-11] MEDS: TAMSULOSIN HCL 0.4MG SR CAPSULE PO SCH ×2 (08:40→20:27)
[2019-10-11 09:06] LABS: BG BASE EXCESS -1.7 mmol/L (-2.0-2.0); BG CARBOXYHEMOGLOBIN 0.7 % (0.5-1.5); BG DEOXYHEMOGLOBIN 0.5 % (0.0-5.0); BG FRACTION INSPIRED OXYGEN 40; BG HCO3 ACT 21.1 mmol/L (22.0-26.0); BG METHEMOGLOBIN 0.3 % (0.0-1.5); BG OXYGEN SATURATION 99.5 % (92.0-98.5); BG OXYHEMOGLOBIN 98.5 % (94.0-97.0); BG PCO2 28.7 mmHg (35.0-45.0); BG PH 7.484 (7.350-7.450); BG PO2 188.3 mmHg (75.0-100.0); BG SAMPLE SITE RIGHT RADIAL; BG TIDAL VOLUME(mL) 550 mL; BG TOTAL HEMOGLOBIN 9.1 g/dL (12.0-18.0); BG VENT MODE VENT - A/C; BG VENT RATE 14 set
[2019-10-11] MEDS: MIDAZOLAM HCL 50 MG in DEXTROSE 5% WATER 40 ML IV PRN ×2 (09:38→19:53)
[2019-10-11] MEDS: INSULIN GLARGINE UD 100 UNITS/ML SYR SUBCUT SCH (09:39)
[2019-10-11] MEDS: ATORVASTATIN CALCIUM 40MG TABLET PO SCH (20:26)
[2019-10-12] VITALS (47 sets, daily range): BP systolic 100–140; BP diastolic 61–84
[2019-10-12] MEDS: IPRATROPIUM/ALBUTEROL 0.5-3(2.5)MG/3ML NEB HHN SCH ×4 (01:52→20:57)
[2019-10-12] MEDS: FENTANYL CITRATE/PF 500 MCG in SODIUM CHLORIDE 0.9% 40 ML IV PRN ×2 (04:58→16:21)
[2019-10-12] MEDS: MIDAZOLAM HCL 50 MG in DEXTROSE 5% WATER 40 ML IV PRN ×2 (04:59→16:22)
[2019-10-12] MEDS: HYDRALAZINE HCL 50MG TABLET NG SCH ×3 (05:22→21:08)
[2019-10-12] MEDS: SODIUM CHLORIDE 0.9% 1,000 ML IV SCH ×2 (06:20→11:47)
[2019-10-12] MEDS: BLOOD SUGAR DIAGNOSTIC STRIP TEST SCH ×4 (06:30→20:55)
[2019-10-12] MEDS: INSULIN LISPRO 100 UNITS/ML SUBCUT SCH ×4 (07:00→21:00)
[2019-10-12 07:43] LABS: BG BASE EXCESS -2.5 mmol/L (-2.0-2.0); BG CARBOXYHEMOGLOBIN 0.2 % (0.5-1.5); BG HCO3 ACT 22.9 mmol/L (22.0-26.0); BG METHEMOGLOBIN 0.4 % (0.0-1.5); BG OXYHEMOGLOBIN 96.4 % (94.0-97.0); BG PH 7.354 (7.350-7.450); BG PO2 96.8 mmHg (75.0-100.0); BG SAMPLE SITE RIGHT RADIAL; BG TIDAL VOLUME(mL) 550 mL; BG TOTAL HEMOGLOBIN 9.9 g/dL (12.0-18.0); BG VENT MODE VENT - A/C; BG VENT RATE 14 set
[2019-10-12] MEDS: LEVETIRACETAM 500MG PREMIX 100 ML IV SCH ×2 (08:54→20:52)
[2019-10-12] MEDS: DUTASTERIDE 0.5MG CAPSULE PO SCH (08:55)
[2019-10-12] MEDS: FAMOTIDINE 20MG TABLET PO SCH (08:55)
[2019-10-12] MEDS: TAMSULOSIN HCL 0.4MG SR CAPSULE PO SCH ×2 (08:55→20:53)
[2019-10-12] MEDS: ENOXAPARIN 100MG/ML SYR SUBCUT SCH ×2 (08:56→20:52)
[2019-10-12] MEDS: DILTIAZEM HCL 60MG TABLET PO SCH ×2 (08:56→20:53)
[2019-10-12] MEDS: INSULIN GLARGINE UD 100 UNITS/ML SYR SUBCUT SCH (09:28)
[2019-10-12] MEDS: ATORVASTATIN CALCIUM 40MG TABLET PO SCH (21:08)
[2019-10-13] VITALS (47 sets, daily range): BP systolic 98–158; BP diastolic 58–89
[2019-10-13] MEDS: FENTANYL CITRATE/PF 500 MCG in SODIUM CHLORIDE 0.9% 40 ML IV PRN ×2 (03:11→17:33)
[2019-10-13] MEDS: MIDAZOLAM HCL 50 MG in DEXTROSE 5% WATER 40 ML IV PRN ×2 (03:12→17:33)
[2019-10-13] MEDS: SODIUM CHLORIDE 0.9% 1,000 ML IV SCH ×2 (05:08→23:39)
[2019-10-13] MEDS: HYDRALAZINE HCL 50MG TABLET NG SCH ×3 (05:13→21:37)
[2019-10-13] MEDS: INSULIN LISPRO 100 UNITS/ML SUBCUT SCH ×4 (05:17→21:00)
[2019-10-13] MEDS: BLOOD SUGAR DIAGNOSTIC STRIP TEST SCH ×4 (05:17→21:39)
[2019-10-13 05:27] LABS: PROTHROMBIN TIME 11.1 sec (9.6-11.0)
[2019-10-13 05:28] LABS: BASOPHILS % 0.9 % (0.0-2.0); CHLORIDE 110 mEq/L (98-107); EOSINOPHILS % 3.1 % (0.0-5.0); HEMATOCRIT. 30.7 % (42.0-52.0); HEMOGLOBIN. 9.2 g/dL (14.0-18.0); LYMPHOCYTES % 16.6 % (20.0-50.0); MEAN CORPUSCULAR VOLUME 73.5 fL (80.0-94.0); MONOCYTES % 11.2 % (2.0-8.0); NEUTROPHILS % 68.2 % (40.0-76.0); PLATELET 256 x1000/uL (130-400); RED BLOOD CELL COUNT 4.17 mill/uL (4.7-6.1); RED CELL DISTRIBUTION WIDTH 21.2 % (11.6-14.6)
[2019-10-13] MEDS: TAMSULOSIN HCL 0.4MG SR CAPSULE PO SCH ×2 (09:00→21:38)
[2019-10-13] MEDS: LEVETIRACETAM 500MG PREMIX 100 ML IV SCH ×2 (09:31→21:36)
[2019-10-13] MEDS: CYANOCOBALAMIN 1000MCG/ML VIAL IM SCH (09:31)
[2019-10-13] MEDS: DUTASTERIDE 0.5MG CAPSULE PO SCH (09:31)
[2019-10-13] MEDS: ENOXAPARIN 100MG/ML SYR SUBCUT SCH ×2 (09:32→21:39)
[2019-10-13] MEDS: DILTIAZEM HCL 60MG TABLET PO SCH ×2 (09:32→21:37)
[2019-10-13] MEDS: INSULIN GLARGINE UD 100 UNITS/ML SYR SUBCUT SCH (09:35)
[2019-10-13] MEDS: IPRATROPIUM/ALBUTEROL 0.5-3(2.5)MG/3ML NEB HHN SCH ×2 (10:22→20:13)
[2019-10-13 10:23] LABS: BG BASE EXCESS 0.5 mmol/L (-2.0-2.0); BG CARBOXYHEMOGLOBIN 0.3 % (0.5-1.5); BG FRACTION INSPIRED OXYGEN 40; BG HCO3 ACT 25.1 mmol/L (22.0-26.0); BG METHEMOGLOBIN 0.3 % (0.0-1.5); BG OXYHEMOGLOBIN 96.4 % (94.0-97.0); BG PCO2 40.3 mmHg (35.0-45.0); BG PH 7.413 (7.350-7.450); BG PO2 90.6 mmHg (75.0-100.0); BG SAMPLE SITE RIGHT RADIAL; BG TIDAL VOLUME(mL) 550 mL; BG TOTAL HEMOGLOBIN 9.2 g/dL (12.0-18.0); BG VENT MODE VENT - A/C; BG VENT RATE 14 set
[2019-10-13 11:03] LABS: TOTAL IRON BINDING CAPACITY 219 ug/dL (250-450)
[2019-10-13] MEDS: ACETAMINOPHEN 325MG TABLET PO PRN (13:13)
[2019-10-13] MEDS: FAMOTIDINE 40MG TABLET PO SCH ×2 (15:09→21:37)
[2019-10-13] MEDS: METOCLOPRAMIDE HCL 10MG/2ML VIAL IV SCH ×2 (17:18→23:51)
[2019-10-13] MEDS: ATORVASTATIN CALCIUM 40MG TABLET PO SCH (21:37)
[2019-10-14] VITALS (47 sets, daily range): BP systolic 104–153; BP diastolic 56–83
[2019-10-14] MEDS: IPRATROPIUM/ALBUTEROL 0.5-3(2.5)MG/3ML NEB HHN SCH ×4 (02:16→20:39)
[2019-10-14] MEDS: BLOOD SUGAR DIAGNOSTIC STRIP TEST SCH ×4 (06:06→23:16)
[2019-10-14] MEDS: INSULIN LISPRO 100 UNITS/ML SUBCUT SCH ×4 (06:10→23:29)
[2019-10-14] MEDS: HYDRALAZINE HCL 50MG TABLET NG SCH ×3 (06:14→21:25)
[2019-10-14] MEDS: METOCLOPRAMIDE HCL 10MG/2ML VIAL IV SCH ×4 (06:14→23:30)
[2019-10-14] MEDS: MIDAZOLAM HCL 50 MG in DEXTROSE 5% WATER 40 ML IV PRN (07:17)
[2019-10-14 08:17] LABS: BG BASE EXCESS -0.8 mmol/L (-2.0-2.0); BG CARBOXYHEMOGLOBIN 0.9 % (0.5-1.5); BG DEOXYHEMOGLOBIN 0.5 % (0.0-5.0); BG HCO3 ACT 23.6 mmol/L (22.0-26.0); BG METHEMOGLOBIN 0.3 % (0.0-1.5); BG OXYGEN SATURATION 99.5 % (92.0-98.5); BG OXYHEMOGLOBIN 98.3 % (94.0-97.0); BG PH 7.411 (7.350-7.450); BG PO2 160.8 mmHg (75.0-100.0); BG SAMPLE SITE RIGHT RADIAL; BG TIDAL VOLUME(mL) 550 mL; BG TOTAL HEMOGLOBIN 9.6 g/dL (12.0-18.0); BG VENT MODE VENT - A/C; BG VENT RATE 14 set
[2019-10-14] MEDS: TAMSULOSIN HCL 0.4MG SR CAPSULE PO SCH ×2 (09:00→21:23)
[2019-10-14] MEDS: DUTASTERIDE 0.5MG CAPSULE PO SCH (09:00)
[2019-10-14 09:07] LABS: BASOPHILS % 0.2 % (0.0-2.0); EOSINOPHILS % 2.4 % (0.0-5.0); HEMATOCRIT. 30.4 % (42.0-52.0); LYMPHOCYTES % 17.6 % (20.0-50.0); MEAN CORPUSCULAR HEMOGLOBIN 22.2 pg (28.0-32.0); MEAN CORPUSCULAR VOLUME 75.4 fL (80.0-94.0); MEAN PLATELET VOLUME 9.3 fl (7.4-10.4); MONOCYTES % 12.8 % (2.0-8.0); PLATELET 236 x1000/uL (130-400); RED BLOOD CELL COUNT 4.04 mill/uL (4.7-6.1); RED CELL DISTRIBUTION WIDTH 21.5 % (11.6-14.6)
[2019-10-14 09:08] LABS: CHLORIDE 109 mEq/L (98-107)
[2019-10-14] MEDS: FAMOTIDINE 40MG TABLET PO SCH ×2 (09:29→21:23)
[2019-10-14] MEDS: DILTIAZEM HCL 60MG TABLET PO SCH ×2 (09:30→21:23)
[2019-10-14] MEDS: ENOXAPARIN 100MG/ML SYR SUBCUT SCH ×2 (09:32→21:22)
[2019-10-14] MEDS: INSULIN GLARGINE UD 100 UNITS/ML SYR SUBCUT SCH (09:36)
[2019-10-14] MEDS: LEVETIRACETAM 500MG PREMIX 100 ML IV SCH ×2 (11:31→21:23)
[2019-10-14] MEDS: SODIUM CHLORIDE 0.9% 1,000 ML IV SCH (11:32)
[2019-10-14] MEDS: ATORVASTATIN CALCIUM 40MG TABLET PO SCH (21:23)
[2019-10-15] VITALS (75 sets, daily range): BP systolic 105–154; BP diastolic 52–85
[2019-10-15] MEDS: FENTANYL CITRATE/PF 500 MCG in SODIUM CHLORIDE 0.9% 40 ML IV PRN (01:14)
[2019-10-15] MEDS: SODIUM CHLORIDE 0.9% 1,000 ML IV SCH ×2 (01:14→16:14)
[2019-10-15] MEDS: IPRATROPIUM/ALBUTEROL 0.5-3(2.5)MG/3ML NEB HHN SCH ×4 (02:16→20:33)
[2019-10-15] MEDS: MIDAZOLAM HCL 50 MG in DEXTROSE 5% WATER 40 ML IV PRN (03:39)
[2019-10-15] MEDS: BLOOD SUGAR DIAGNOSTIC STRIP TEST SCH ×3 (05:09→18:35)
[2019-10-15] MEDS: INSULIN LISPRO 100 UNITS/ML SUBCUT SCH ×3 (05:09→18:00)
[2019-10-15] MEDS: METOCLOPRAMIDE HCL 10MG/2ML VIAL IV SCH ×3 (05:18→18:37)
[2019-10-15] MEDS: HYDRALAZINE HCL 50MG TABLET NG SCH ×3 (05:19→21:17)
[2019-10-15 05:50] LABS: CHLORIDE 109 mEq/L (98-107)
[2019-10-15 06:01] LABS: HEMATOCRIT. 28.3 % (42.0-52.0); HEMOGLOBIN. 8.5 g/dL (14.0-18.0); MEAN CORPUSCULAR HEMOGLOBIN 22.4 pg (28.0-32.0); MEAN CORPUSCULAR VOLUME 74.2 fL (80.0-94.0); MEAN PLATELET VOLUME 9.1 fl (7.4-10.4); PLATELET 254 x1000/uL (130-400); RED BLOOD CELL COUNT 3.82 mill/uL (4.7-6.1); RED CELL DISTRIBUTION WIDTH 20.9 % (11.6-14.6)
[2019-10-15 08:36] LABS: PLATELET ESTIMATE NORMAL
[2019-10-15] MEDS: TAMSULOSIN HCL 0.4MG SR CAPSULE PO SCH ×2 (09:00→21:17)
[2019-10-15] MEDS: LEVETIRACETAM 500MG PREMIX 100 ML IV SCH ×2 (09:49→21:18)
[2019-10-15] MEDS: FAMOTIDINE 40MG TABLET PO SCH ×2 (09:49→21:17)
[2019-10-15] MEDS: DILTIAZEM HCL 60MG TABLET PO SCH ×2 (09:50→21:17)
[2019-10-15] MEDS: ENOXAPARIN 100MG/ML SYR SUBCUT SCH ×2 (09:50→21:17)
[2019-10-15] MEDS: DUTASTERIDE 0.5MG CAPSULE PO SCH (09:50)
[2019-10-15] MEDS: INSULIN GLARGINE UD 100 UNITS/ML SYR SUBCUT SCH (09:51)
[2019-10-15] MEDS ORDERED: MIDAZOLAM HCL 50 MG in DEXTROSE 5% WATER 40 ML IV PRN (19:30)
[2019-10-15] MEDS ORDERED: FENTANYL CITRATE/PF 500 MCG in SODIUM CHLORIDE 0.9% 40 ML IV PRN (19:30)
[2019-10-15] MEDS: ATORVASTATIN CALCIUM 40MG TABLET PO SCH (21:17)
[2019-10-16] VITALS (95 sets, daily range): BP systolic 117–174; BP diastolic 59–89
[2019-10-16] MEDS: BLOOD SUGAR DIAGNOSTIC STRIP TEST SCH ×4 (00:37→18:01)
[2019-10-16] MEDS: METOCLOPRAMIDE HCL 10MG/2ML VIAL IV SCH ×4 (00:40→18:01)
[2019-10-16] MEDS: INSULIN LISPRO 100 UNITS/ML SUBCUT SCH ×4 (00:41→18:01)
[2019-10-16] MEDS: IPRATROPIUM/ALBUTEROL 0.5-3(2.5)MG/3ML NEB HHN SCH ×4 (02:31→20:38)
[2019-10-16] MEDS: HYDRALAZINE HCL 50MG TABLET NG SCH ×3 (05:00→22:40)
[2019-10-16] MEDS: SODIUM CHLORIDE 0.9% 1,000 ML IV SCH ×2 (05:00→18:01)
[2019-10-16] MEDS: DILTIAZEM HCL 60MG TABLET PO SCH ×2 (08:32→21:08)
[2019-10-16] MEDS: FAMOTIDINE 40MG TABLET PO SCH (08:32)
[2019-10-16] MEDS: LEVETIRACETAM 500MG PREMIX 100 ML IV SCH ×2 (08:32→21:08)
[2019-10-16] MEDS: DUTASTERIDE 0.5MG CAPSULE PO SCH (08:32)
[2019-10-16] MEDS: TAMSULOSIN HCL 0.4MG SR CAPSULE PO SCH ×2 (08:33→21:00)
[2019-10-16 09:33] LABS: HEMATOCRIT. 30.1 % (42.0-52.0); HEMOGLOBIN. 8.9 g/dL (14.0-18.0); MEAN CORPUSCULAR VOLUME 74.1 fL (80.0-94.0); MEAN PLATELET VOLUME 8.3 fl (7.4-10.4); PLATELET 271 x1000/uL (130-400); RED BLOOD CELL COUNT 4.06 mill/uL (4.7-6.1); RED CELL DISTRIBUTION WIDTH 21.2 % (11.6-14.6)
[2019-10-16] MEDS: ENOXAPARIN 100MG/ML SYR SUBCUT SCH (09:37)
[2019-10-16] MEDS: INSULIN GLARGINE UD 100 UNITS/ML SYR SUBCUT SCH (09:38)
[2019-10-16 09:43] LABS: CHLORIDE 109 mEq/L (98-107)
[2019-10-16 10:56] LABS: PLATELET ESTIMATE NORMAL
[2019-10-16] MEDS: ATROPINE SULFATE 1% OPHTH 2ML SL SCH ×2 (14:54→21:09)
[2019-10-16] MEDS: PANTOPRAZOLE SODIUM 40 MG/VIAL IV SCH (21:08)
[2019-10-16] MEDS: ATORVASTATIN CALCIUM 40MG TABLET PO SCH (21:09)
[2019-10-17] VITALS (54 sets, daily range): BP systolic 84–165; BP diastolic 45–87
[2019-10-17] MEDS: BLOOD SUGAR DIAGNOSTIC STRIP TEST SCH ×5 (00:11→23:23)
[2019-10-17] MEDS: ACETAMINOPHEN 325MG TABLET PO PRN ×2 (00:18→23:25)
[2019-10-17] MEDS: LORAZEPAM 2MG/ML CPJ IV PRN (00:19)
[2019-10-17] MEDS: METOCLOPRAMIDE HCL 10MG/2ML VIAL IV SCH ×5 (00:19→23:24)
[2019-10-17] MEDS: IPRATROPIUM/ALBUTEROL 0.5-3(2.5)MG/3ML NEB HHN SCH ×4 (02:00→21:17)
[2019-10-17] MEDS: INSULIN LISPRO 100 UNITS/ML SUBCUT SCH ×5 (05:30→23:24)
[2019-10-17 05:40] LABS: CHLORIDE 109 mEq/L (98-107)
[2019-10-17 05:43] LABS: BASOPHILS % 0.8 % (0.0-2.0); EOSINOPHILS % 1.7 % (0.0-5.0); HEMATOCRIT. 29.4 % (42.0-52.0); HEMOGLOBIN. 8.7 g/dL (14.0-18.0); INR 1.1; LYMPHOCYTES % 15.8 % (20.0-50.0); MEAN CORPUSCULAR HEMOGLOBIN 22.1 pg (28.0-32.0); MEAN CORPUSCULAR VOLUME 74.5 fL (80.0-94.0); MONOCYTES % 11.2 % (2.0-8.0); NEUTROPHILS % 70.5 % (40.0-76.0); PLATELET 274 x1000/uL (130-400); PROTHROMBIN TIME 11.4 sec (9.6-11.0); RED BLOOD CELL COUNT 3.95 mill/uL (4.7-6.1); RED CELL DISTRIBUTION WIDTH 21.1 % (11.6-14.6)
[2019-10-17] MEDS: HYDRALAZINE HCL 50MG TABLET NG SCH ×3 (06:00→21:02)
[2019-10-17] MEDS: ATROPINE SULFATE 1% OPHTH 2ML SL SCH ×3 (06:01→21:03)
[2019-10-17] MEDS: SODIUM CHLORIDE 0.9% 1,000 ML IV SCH ×2 (06:01→17:43)
[2019-10-17 08:53] LABS: BASOPHILS % 0.5 % (0.0-2.0); EOSINOPHILS % 1.5 % (0.0-5.0); HEMATOCRIT. 30.1 % (42.0-52.0); LYMPHOCYTES % 14.6 % (20.0-50.0); MEAN CORPUSCULAR HEMOGLOBIN 22.3 pg (28.0-32.0); MEAN CORPUSCULAR VOLUME 74.3 fL (80.0-94.0); MONOCYTES % 10.2 % (2.0-8.0); NEUTROPHILS % 73.2 % (40.0-76.0); PLATELET 271 x1000/uL (130-400); RED BLOOD CELL COUNT 4.05 mill/uL (4.7-6.1); RED CELL DISTRIBUTION WIDTH 20.8 % (11.6-14.6)
[2019-10-17 08:59] LABS: CHLORIDE 109 mEq/L (98-107)
[2019-10-17] MEDS: LEVETIRACETAM 500MG PREMIX 100 ML IV SCH ×2 (09:29→21:01)
[2019-10-17] MEDS: PANTOPRAZOLE SODIUM 40 MG/VIAL IV SCH ×2 (09:29→21:01)
[2019-10-17] MEDS: DILTIAZEM HCL 60MG TABLET PO SCH ×2 (09:30→21:02)
[2019-10-17] MEDS: DUTASTERIDE 0.5MG CAPSULE PO SCH (09:30)
[2019-10-17] MEDS: TAMSULOSIN HCL 0.4MG SR CAPSULE PO SCH ×2 (09:30→21:00)
[2019-10-17] MEDS: INSULIN GLARGINE UD 100 UNITS/ML SYR SUBCUT SCH (09:31)
[2019-10-17] MEDS: PROPOFOL 10MG/ML 100ML 100 ML IV PRN ×2 (10:11→11:33)
[2019-10-17] MEDS ORDERED: LIDOCAINE HCL 1% 20ML VIAL (Pyxis) INJ INFIL ONE (11:00)
[2019-10-17] MEDS: MORPHINE SULFATE 2 MG/ML CPJ (NOT FOR IM USE) IV PRN ×2 (11:32→21:50)
[2019-10-17] MEDS ORDERED: CEFAZOLIN 1000MG PREMIX 50 ML IV SCH (13:00)
[2019-10-17] MEDS ORDERED: MIDAZOLAM HCL 5 MG/5 ML VIAL ONE (17:16)
[2019-10-17] MEDS ORDERED: FENTANYL CITRATE/PF 50MCG/ML 2ML VIAL ONE (17:17)
[2019-10-17] MEDS: ATORVASTATIN CALCIUM 40MG TABLET PO SCH (21:02)
[2019-10-18] VITALS (37 sets, daily range): BP systolic 111–172; BP diastolic 42–117
[2019-10-18] MEDS: LORAZEPAM 2MG/ML CPJ IV PRN ×2 (01:48→21:04)
[2019-10-18] MEDS: IPRATROPIUM/ALBUTEROL 0.5-3(2.5)MG/3ML NEB HHN SCH ×3 (01:50→09:15)
[2019-10-18] MEDS: MORPHINE SULFATE 2 MG/ML CPJ (NOT FOR IM USE) IV PRN ×2 (03:19→21:04)
[2019-10-18] MEDS: ACETAMINOPHEN 325MG TABLET PO PRN (03:35)
[2019-10-18] MEDS: METOCLOPRAMIDE HCL 10MG/2ML VIAL IV SCH ×4 (05:43→23:55)
[2019-10-18] MEDS: HYDRALAZINE HCL 50MG TABLET NG SCH ×3 (05:44→21:04)
[2019-10-18] MEDS: ATROPINE SULFATE 1% OPHTH 2ML SL SCH ×3 (05:44→21:07)
[2019-10-18] MEDS: BLOOD SUGAR DIAGNOSTIC STRIP TEST SCH ×4 (05:44→23:46)
[2019-10-18] MEDS: INSULIN LISPRO 100 UNITS/ML SUBCUT SCH ×4 (05:44→23:55)
[2019-10-18] MEDS: DUTASTERIDE 0.5MG CAPSULE PO SCH (08:48)
[2019-10-18] MEDS: DILTIAZEM HCL 60MG TABLET PO SCH ×2 (08:49→21:05)
[2019-10-18] MEDS: TAMSULOSIN HCL 0.4MG SR CAPSULE PO SCH ×2 (08:49→21:05)
[2019-10-18] MEDS: SODIUM CHLORIDE 0.9% 1,000 ML IV SCH ×2 (08:51→22:35)
[2019-10-18] MEDS: LEVETIRACETAM 500MG PREMIX 100 ML IV SCH ×2 (08:52→21:05)
[2019-10-18] MEDS: INSULIN GLARGINE UD 100 UNITS/ML SYR SUBCUT SCH (08:53)
[2019-10-18] MEDS: ATORVASTATIN CALCIUM 40MG TABLET PO SCH (21:05)
[2019-10-18] MEDS ORDERED: AMIODARONE HCL 900 MG in DEXT 5% WATER 482 ML IV PRN (22:15)
[2019-10-19] VITALS (95 sets, daily range): BP systolic 97–145; BP diastolic 48–92
[2019-10-19] MEDS: ATROPINE SULFATE 1% OPHTH 2ML SL SCH ×3 (06:16→21:06)
[2019-10-19] MEDS: METOCLOPRAMIDE HCL 10MG/2ML VIAL IV SCH ×3 (06:16→17:48)
[2019-10-19] MEDS: BLOOD SUGAR DIAGNOSTIC STRIP TEST SCH ×3 (06:16→17:59)
[2019-10-19] MEDS: HYDRALAZINE HCL 50MG TABLET NG SCH ×3 (06:16→21:06)
[2019-10-19] MEDS: INSULIN LISPRO 100 UNITS/ML SUBCUT SCH ×3 (06:21→17:59)
[2019-10-19] MEDS: IPRATROPIUM/ALBUTEROL 0.5-3(2.5)MG/3ML NEB HHN SCH ×2 (08:36→14:36)
[2019-10-19] MEDS: LEVETIRACETAM 500MG PREMIX 100 ML IV SCH ×2 (09:14→20:52)
[2019-10-19] MEDS: DUTASTERIDE 0.5MG CAPSULE PO SCH (09:31)
[2019-10-19] MEDS: DILTIAZEM HCL 60MG TABLET PO SCH ×2 (09:31→20:52)
[2019-10-19] MEDS: TAMSULOSIN HCL 0.4MG SR CAPSULE PO SCH ×2 (09:32→20:52)
[2019-10-19 09:34] LABS: BASOPHILS % 0.8 % (0.0-2.0); EOSINOPHILS % 1.1 % (0.0-5.0); HEMATOCRIT. 28.6 % (42.0-52.0); HEMOGLOBIN. 8.4 g/dL (14.0-18.0); LYMPHOCYTES % 12.9 % (20.0-50.0); MEAN CORPUSCULAR HEMOGLOBIN 21.7 pg (28.0-32.0); MEAN CORPUSCULAR VOLUME 73.7 fL (80.0-94.0); MEAN PLATELET VOLUME 8.6 fl (7.4-10.4); MONOCYTES % 8.2 % (2.0-8.0); PLATELET 261 x1000/uL (130-400); RED BLOOD CELL COUNT 3.88 mill/uL (4.7-6.1); RED CELL DISTRIBUTION WIDTH 20.9 % (11.6-14.6)
[2019-10-19 09:41] LABS: CHLORIDE 112 mEq/L (98-107)
[2019-10-19 09:58] LABS: BG BASE EXCESS -0.2 mmol/L (-2.0-2.0); BG CARBOXYHEMOGLOBIN 0.8 % (0.5-1.5); BG DEOXYHEMOGLOBIN 2.8 % (0.0-5.0); BG FRACTION INSPIRED OXYGEN 30; BG HCO3 ACT 24.2 mmol/L (22.0-26.0); BG METHEMOGLOBIN 0.3 % (0.0-1.5); BG OXYGEN SATURATION 97.2 % (92.0-98.5); BG OXYHEMOGLOBIN 96.1 % (94.0-97.0); BG PCO2 38.3 mmHg (35.0-45.0); BG PH 7.418 (7.350-7.450); BG PO2 88.7 mmHg (75.0-100.0); BG SAMPLE SITE RIGHT RADIAL; BG TIDAL VOLUME(mL) 550 mL; BG TOTAL HEMOGLOBIN 8.8 g/dL (12.0-18.0); BG VENT MODE VENT - A/C; BG VENT RATE 14 set
[2019-10-19] MEDS: SODIUM CHLORIDE 0.9% 1,000 ML IV SCH (11:25)
[2019-10-19] MEDS: INSULIN GLARGINE UD 100 UNITS/ML SYR SUBCUT SCH (11:49)
[2019-10-19] MEDS: LORAZEPAM 2MG/ML CPJ IV PRN ×2 (14:13→21:50)
[2019-10-19] MEDS: MORPHINE SULFATE 2 MG/ML CPJ (NOT FOR IM USE) IV PRN ×2 (14:29→21:50)
[2019-10-19] MEDS: ATORVASTATIN CALCIUM 40MG TABLET PO SCH (20:51)
[2019-10-20] VITALS (83 sets, daily range): BP systolic 76–152; BP diastolic 63–102
[2019-10-20] MEDS: IPRATROPIUM/ALBUTEROL 0.5-3(2.5)MG/3ML NEB HHN SCH (00:29)
[2019-10-20] MEDS: SODIUM CHLORIDE 0.9% 1,000 ML IV SCH ×2 (01:06→12:57)
[2019-10-20] MEDS: METOCLOPRAMIDE HCL 10MG/2ML VIAL IV SCH ×4 (01:07→17:15)
[2019-10-20] MEDS: LORAZEPAM 2MG/ML CPJ IV PRN ×3 (03:14→18:12)
[2019-10-20] MEDS: MORPHINE SULFATE 2 MG/ML CPJ (NOT FOR IM USE) IV PRN ×2 (03:15→21:21)
[2019-10-20] MEDS: BLOOD SUGAR DIAGNOSTIC STRIP TEST SCH ×4 (05:06→17:30)
[2019-10-20] MEDS: INSULIN LISPRO 100 UNITS/ML SUBCUT SCH ×4 (05:09→17:30)
[2019-10-20] MEDS: HYDRALAZINE HCL 50MG TABLET NG SCH ×3 (05:13→21:08)
[2019-10-20] MEDS: ATROPINE SULFATE 1% OPHTH 2ML SL SCH ×3 (05:15→21:09)
[2019-10-20] MEDS ORDERED: DIGOXIN 500MCG/2ML AMP IV SCH (10:00)
[2019-10-20] MEDS: CYANOCOBALAMIN 1000MCG/ML VIAL IM SCH (10:36)
[2019-10-20] MEDS: DUTASTERIDE 0.5MG CAPSULE PO SCH (10:37)
[2019-10-20] MEDS: DILTIAZEM HCL 60MG TABLET PO SCH ×2 (10:38→21:09)
[2019-10-20] MEDS: LEVETIRACETAM 500MG PREMIX 100 ML IV SCH ×2 (10:38→21:08)
[2019-10-20] MEDS: TAMSULOSIN HCL 0.4MG SR CAPSULE PO SCH ×2 (10:39→21:08)
[2019-10-20] MEDS: INSULIN GLARGINE UD 100 UNITS/ML SYR SUBCUT SCH (10:44)
[2019-10-20] MEDS: IPRATROPIUM BROMIDE (0.02%) 0.5MG/2.5ML NEB HHN SCH (20:34)
[2019-10-20] MEDS: ATORVASTATIN CALCIUM 40MG TABLET PO SCH (21:09)
[2019-10-21] VITALS (94 sets, daily range): BP systolic 111–158; BP diastolic 52–95
[2019-10-21] MEDS: METOCLOPRAMIDE HCL 10MG/2ML VIAL IV SCH ×5 (00:59→23:36)
[2019-10-21] MEDS: LORAZEPAM 2MG/ML CPJ IV PRN ×2 (00:59→22:37)
[2019-10-21] MEDS: BLOOD SUGAR DIAGNOSTIC STRIP TEST SCH ×4 (01:00→17:44)
[2019-10-21] MEDS: MORPHINE SULFATE 2 MG/ML CPJ (NOT FOR IM USE) IV PRN ×3 (01:32→21:24)
[2019-10-21] MEDS: IPRATROPIUM BROMIDE (0.02%) 0.5MG/2.5ML NEB HHN SCH ×4 (02:15→20:53)
[2019-10-21] MEDS: DILTIAZEM HCL 125 MG in DEXT 5% WATER 100 ML IV PRN (02:50)
[2019-10-21] MEDS: SODIUM CHLORIDE 0.9% 1,000 ML IV SCH ×2 (02:58→17:44)
[2019-10-21] MEDS: INSULIN LISPRO 100 UNITS/ML SUBCUT SCH ×4 (05:35→17:44)
[2019-10-21] MEDS: HYDRALAZINE HCL 50MG TABLET NG SCH ×3 (05:36→21:01)
[2019-10-21] MEDS: ATROPINE SULFATE 1% OPHTH 2ML SL SCH ×3 (05:37→21:02)
[2019-10-21] MEDS: LEVETIRACETAM 500MG PREMIX 100 ML IV SCH ×2 (08:52→21:01)
[2019-10-21] MEDS: DILTIAZEM HCL 60MG TABLET PO SCH ×4 (08:53→21:01)
[2019-10-21] MEDS: DUTASTERIDE 0.5MG CAPSULE PO SCH (08:53)
[2019-10-21] MEDS: TAMSULOSIN HCL 0.4MG SR CAPSULE PO SCH ×2 (08:53→21:00)
[2019-10-21] MEDS: INSULIN GLARGINE UD 100 UNITS/ML SYR SUBCUT SCH (09:01)
[2019-10-21 09:58] LABS: HEMOGLOBIN. 7.7 g/dL (14.0-18.0); MEAN CORPUSCULAR HEMOGLOBIN 21.9 pg (28.0-32.0); MEAN CORPUSCULAR VOLUME 73.8 fL (80.0-94.0); MEAN PLATELET VOLUME 8.4 fl (7.4-10.4); PLATELET 275 x1000/uL (130-400); RED BLOOD CELL COUNT 3.53 mill/uL (4.7-6.1); RED CELL DISTRIBUTION WIDTH 20.5 % (11.6-14.6)
[2019-10-21 11:10] LABS: PLATELET ESTIMATE NORMAL
[2019-10-21] MEDS: LACTULOSE 20G/30ML UDC PO PRN (12:20)
[2019-10-21] MEDS: DOCUSATE SODIUM SUGAR FREE 100MG/10ML UDC NG PRN (12:20)
[2019-10-21] MEDS: ACETYLCYSTEINE 100MG/ML 10% VIAL 4ML INH SCH (16:50)
[2019-10-21] MEDS: ATORVASTATIN CALCIUM 40MG TABLET PO SCH (21:01)
[2019-10-21] MEDS: ONDANSETRON HCL 4MG/2ML INJ IV PRN (22:41)
[2019-10-22] VITALS (38 sets, daily range): BP systolic 97–144; BP diastolic 62–99
[2019-10-22] MEDS: BLOOD SUGAR DIAGNOSTIC STRIP TEST SCH ×4 (00:21→17:54)
[2019-10-22] MEDS: MORPHINE SULFATE 2 MG/ML CPJ (NOT FOR IM USE) IV PRN (01:32)
[2019-10-22] MEDS: ATROPINE SULFATE 1% OPHTH 2ML SL SCH ×3 (05:59→21:39)
[2019-10-22] MEDS: HYDRALAZINE HCL 50MG TABLET NG SCH ×3 (06:00→21:24)
[2019-10-22] MEDS: METOCLOPRAMIDE HCL 10MG/2ML VIAL IV SCH ×3 (06:00→18:15)
[2019-10-22] MEDS: SODIUM CHLORIDE 0.9% 1,000 ML IV SCH ×2 (06:00→19:25)
[2019-10-22] MEDS: INSULIN LISPRO 100 UNITS/ML SUBCUT SCH ×4 (06:00→18:00)
[2019-10-22 06:40] LABS: BASOPHILS % 0.9 % (0.0-2.0); EOSINOPHILS % 4.2 % (0.0-5.0); HEMATOCRIT. 26.9 % (42.0-52.0); LYMPHOCYTES % 16.1 % (20.0-50.0); MEAN CORPUSCULAR VOLUME 74.1 fL (80.0-94.0); MEAN PLATELET VOLUME 8.8 fl (7.4-10.4); MONOCYTES % 13.3 % (2.0-8.0); NEUTROPHILS % 65.5 % (40.0-76.0); PLATELET 277 x1000/uL (130-400); RED BLOOD CELL COUNT 3.62 mill/uL (4.7-6.1); RED CELL DISTRIBUTION WIDTH 20.7 % (11.6-14.6)
[2019-10-22 06:50] LABS: CHLORIDE 113 mEq/L (98-107)
[2019-10-22 08:54] LABS: BG BASE EXCESS -2.9 mmol/L (-2.0-2.0); BG CARBOXYHEMOGLOBIN 0.9 % (0.5-1.5); BG DEOXYHEMOGLOBIN 2.6 % (0.0-5.0); BG FRACTION INSPIRED OXYGEN 30; BG HCO3 ACT 21.4 mmol/L (22.0-26.0); BG METHEMOGLOBIN 0.1 % (0.0-1.5); BG OXYGEN SATURATION 97.4 % (92.0-98.5); BG OXYHEMOGLOBIN 96.4 % (94.0-97.0); BG PCO2 34.7 mmHg (35.0-45.0); BG PH 7.407 (7.350-7.450); BG PO2 93.6 mmHg (75.0-100.0); BG SAMPLE SITE RIGHT RADIAL; BG TIDAL VOLUME(mL) 550 mL; BG TOTAL HEMOGLOBIN 8.2 g/dL (12.0-18.0); BG VENT MODE VENT - A/C; BG VENT RATE 14 set
[2019-10-22] MEDS: DUTASTERIDE 0.5MG CAPSULE PO SCH (09:00)
[2019-10-22] MEDS: TAMSULOSIN HCL 0.4MG SR CAPSULE PO SCH ×2 (09:00→21:24)
[2019-10-22] MEDS: DILTIAZEM HCL 60MG TABLET PO SCH ×4 (09:11→21:24)
[2019-10-22] MEDS: LEVETIRACETAM 500MG PREMIX 100 ML IV SCH ×2 (09:12→21:38)
[2019-10-22] MEDS: IPRATROPIUM BROMIDE (0.02%) 0.5MG/2.5ML NEB HHN SCH ×3 (09:29→20:34)
[2019-10-22] MEDS: INSULIN GLARGINE UD 100 UNITS/ML SYR SUBCUT SCH (10:08)
[2019-10-22] MEDS: ACETAMINOPHEN 325MG TABLET PO PRN (14:00)
[2019-10-22] MEDS: ENOXAPARIN 100MG/ML SYR SUBCUT SCH (18:15)
[2019-10-22] MEDS: ACETYLCYSTEINE 100MG/ML 10% VIAL 4ML INH SCH (20:35)
[2019-10-22] MEDS: LACTULOSE 20G/30ML UDC PO PRN (21:23)
[2019-10-22] MEDS: ATORVASTATIN CALCIUM 40MG TABLET PO SCH (21:24)
[2019-10-23] VITALS (15 sets, daily range): BP systolic 107–153; BP diastolic 54–99
[2019-10-23] MEDS: METOCLOPRAMIDE HCL 10MG/2ML VIAL IV SCH ×5 (01:05→23:19)
[2019-10-23] MEDS: IPRATROPIUM BROMIDE (0.02%) 0.5MG/2.5ML NEB HHN SCH ×4 (02:27→20:53)
[2019-10-23] MEDS: HYDRALAZINE HCL 50MG TABLET NG SCH ×3 (05:14→22:00)
[2019-10-23] MEDS: ENOXAPARIN 100MG/ML SYR SUBCUT SCH ×2 (05:14→17:32)
[2019-10-23] MEDS: BLOOD SUGAR DIAGNOSTIC STRIP TEST SCH ×5 (05:15→23:19)
[2019-10-23] MEDS: ATROPINE SULFATE 1% OPHTH 2ML SL SCH ×3 (05:15→22:27)
[2019-10-23] MEDS: INSULIN LISPRO 100 UNITS/ML SUBCUT SCH ×4 (05:24→17:50)
[2019-10-23] MEDS: LORAZEPAM 2MG/ML CPJ IV PRN ×2 (06:50→23:19)
[2019-10-23] MEDS: ACETYLCYSTEINE 100MG/ML 10% VIAL 4ML INH SCH ×2 (08:55→20:53)
[2019-10-23] MEDS: DILTIAZEM HCL 60MG TABLET PO SCH ×4 (09:02→21:19)
[2019-10-23] MEDS: TAMSULOSIN HCL 0.4MG SR CAPSULE PO SCH ×2 (09:02→21:19)
[2019-10-23] MEDS: INSULIN GLARGINE UD 100 UNITS/ML SYR SUBCUT SCH (09:26)
[2019-10-23] MEDS: SODIUM CHLORIDE 0.9% 1,000 ML IV SCH (09:27)
[2019-10-23] MEDS: LEVETIRACETAM 500MG PREMIX 100 ML IV SCH ×2 (10:56→21:19)
[2019-10-23] MEDS: DUTASTERIDE 0.5MG CAPSULE PO SCH (12:26)
[2019-10-23 13:12] LABS: HEMATOCRIT. 27.9 % (42.0-52.0); HEMOGLOBIN. 8.4 g/dL (14.0-18.0); MEAN CORPUSCULAR VOLUME 73.6 fL (80.0-94.0); MEAN PLATELET VOLUME 8.4 fl (7.4-10.4); PLATELET 302 x1000/uL (130-400); RED CELL DISTRIBUTION WIDTH 20.5 % (11.6-14.6)
[2019-10-23 13:31] LABS: CHLORIDE 112 mEq/L (98-107)
[2019-10-23 14:15] LABS: PLATELET ESTIMATE NORMAL
[2019-10-23] MEDS: ATORVASTATIN CALCIUM 40MG TABLET PO SCH (21:19)
[2019-10-24] VITALS (12 sets, daily range): BP systolic 89–130; BP diastolic 53–78
[2019-10-24] MEDS: SODIUM CHLORIDE 0.9% 1,000 ML IV SCH ×2 (00:11→12:51)
[2019-10-24] MEDS: METOCLOPRAMIDE HCL 10MG/2ML VIAL IV SCH ×3 (05:05→18:21)
[2019-10-24] MEDS: ATROPINE SULFATE 1% OPHTH 2ML SL SCH ×3 (05:06→21:05)
[2019-10-24] MEDS: ENOXAPARIN 100MG/ML SYR SUBCUT SCH ×2 (05:06→18:21)
[2019-10-24] MEDS: BLOOD SUGAR DIAGNOSTIC STRIP TEST SCH ×3 (05:06→18:09)
[2019-10-24] MEDS: HYDRALAZINE HCL 50MG TABLET NG SCH ×3 (05:06→22:00)
[2019-10-24] MEDS: INSULIN LISPRO 100 UNITS/ML SUBCUT SCH ×4 (05:29→18:00)
[2019-10-24] MEDS: MORPHINE SULFATE 2 MG/ML CPJ (NOT FOR IM USE) IV PRN (06:08)
[2019-10-24] MEDS: DILTIAZEM HCL 60MG TABLET PO SCH ×4 (08:10→21:02)
[2019-10-24] MEDS: TAMSULOSIN HCL 0.4MG SR CAPSULE PO SCH ×2 (08:11→21:03)
[2019-10-24] MEDS: LEVETIRACETAM 500MG PREMIX 100 ML IV SCH ×2 (08:11→21:04)
[2019-10-24] MEDS: DUTASTERIDE 0.5MG CAPSULE PO SCH (08:11)
[2019-10-24] MEDS: IPRATROPIUM BROMIDE (0.02%) 0.5MG/2.5ML NEB HHN SCH ×3 (08:37→20:39)
[2019-10-24] MEDS: ACETYLCYSTEINE 100MG/ML 10% VIAL 4ML INH SCH ×2 (08:38→20:40)
[2019-10-24] MEDS: LORAZEPAM 2MG/ML CPJ IV PRN (08:42)
[2019-10-24] MEDS: INSULIN GLARGINE UD 100 UNITS/ML SYR SUBCUT SCH (11:11)
[2019-10-24 15:21] LABS: CHLORIDE 111 mEq/L (98-107)
[2019-10-24] MEDS ORDERED: DILTIAZEM HCL 5MG/ML 5ML VIAL IV NR (16:00)
[2019-10-24] MEDS: AMIODARONE HCL 900 MG in DEXT 5% WATER 482 ML IV PRN (18:25)
[2019-10-24] MEDS: ACETAMINOPHEN 325MG TABLET PO PRN (21:01)
[2019-10-24] MEDS: METOPROLOL TARTRATE 25MG TABLET PO SCH (21:02)
[2019-10-24] MEDS: ATORVASTATIN CALCIUM 40MG TABLET PO SCH (21:03)
[2019-10-25] VITALS (16 sets, daily range): BP systolic 99–162; BP diastolic 61–99
[2019-10-25] MEDS: METOCLOPRAMIDE HCL 10MG/2ML VIAL IV SCH ×5 (00:58→23:53)
[2019-10-25] MEDS: INSULIN LISPRO 100 UNITS/ML SUBCUT SCH ×5 (01:25→23:54)
[2019-10-25] MEDS: IPRATROPIUM BROMIDE (0.02%) 0.5MG/2.5ML NEB HHN SCH ×4 (02:19→22:06)
[2019-10-25] MEDS: LORAZEPAM 2MG/ML CPJ IV PRN ×3 (03:58→18:08)
[2019-10-25] MEDS: HYDRALAZINE HCL 50MG TABLET NG SCH ×3 (05:22→21:27)
[2019-10-25] MEDS: ENOXAPARIN 100MG/ML SYR SUBCUT SCH ×2 (05:22→17:54)
[2019-10-25] MEDS: ATROPINE SULFATE 1% OPHTH 2ML SL SCH ×3 (05:23→21:28)
[2019-10-25] MEDS: BLOOD SUGAR DIAGNOSTIC STRIP TEST SCH ×5 (05:23→23:54)
[2019-10-25] MEDS: SODIUM CHLORIDE 0.9% 1,000 ML IV SCH (05:32)
[2019-10-25] MEDS: TAMSULOSIN HCL 0.4MG SR CAPSULE PO SCH ×2 (08:26→21:27)
[2019-10-25] MEDS: DUTASTERIDE 0.5MG CAPSULE PO SCH (08:27)
[2019-10-25] MEDS: LEVETIRACETAM 500MG PREMIX 100 ML IV SCH ×2 (08:27→21:40)
[2019-10-25] MEDS: METOPROLOL TARTRATE 25MG TABLET PO SCH ×2 (08:27→21:27)
[2019-10-25] MEDS: DILTIAZEM HCL 60MG TABLET PO SCH ×4 (08:27→21:27)
[2019-10-25] MEDS: ACETYLCYSTEINE 100MG/ML 10% VIAL 4ML INH SCH ×2 (09:02→22:07)
[2019-10-25] MEDS: MORPHINE SULFATE 2 MG/ML CPJ (NOT FOR IM USE) IV PRN ×2 (09:37→14:44)
[2019-10-25] MEDS: INSULIN GLARGINE UD 100 UNITS/ML SYR SUBCUT SCH (13:24)
[2019-10-25] MEDS: AMIODARONE HCL 900 MG in DEXT 5% WATER 482 ML IV PRN (18:07)
[2019-10-25] MEDS: AMIODARONE HCL 200 MG TABLET PO SCH (19:16)
[2019-10-25] MEDS: ATORVASTATIN CALCIUM 40MG TABLET PO SCH (21:27)
[2019-10-25] MEDS: LACTULOSE 20G/30ML UDC PO PRN (21:27)
[2019-10-26] VITALS (19 sets, daily range): BP systolic 101–150; BP diastolic 33–95
[2019-10-26] MEDS: IPRATROPIUM BROMIDE (0.02%) 0.5MG/2.5ML NEB HHN SCH ×4 (02:59→20:21)
[2019-10-26] MEDS: SODIUM CHLORIDE 0.9% 1,000 ML IV SCH (03:40)
[2019-10-26] MEDS: ENOXAPARIN 100MG/ML SYR SUBCUT SCH (06:26)
[2019-10-26] MEDS: HYDRALAZINE HCL 50MG TABLET NG SCH ×3 (06:27→21:26)
[2019-10-26] MEDS: BLOOD SUGAR DIAGNOSTIC STRIP TEST SCH ×3 (06:27→18:31)
[2019-10-26] MEDS: METOCLOPRAMIDE HCL 10MG/2ML VIAL IV SCH ×3 (06:27→17:49)
[2019-10-26] MEDS: ATROPINE SULFATE 1% OPHTH 2ML SL SCH ×3 (06:28→21:26)
[2019-10-26] MEDS: INSULIN LISPRO 100 UNITS/ML SUBCUT SCH ×3 (06:30→18:00)
[2019-10-26] MEDS: ONDANSETRON HCL 4MG/2ML INJ IV PRN ×3 (07:24→18:07)
[2019-10-26] MEDS: MORPHINE SULFATE 2 MG/ML CPJ (NOT FOR IM USE) IV PRN ×3 (08:05→17:50)
[2019-10-26] MEDS: AMIODARONE HCL 200 MG TABLET PO SCH (08:38)
[2019-10-26] MEDS: DILTIAZEM HCL 60MG TABLET PO SCH ×4 (08:38→21:26)
[2019-10-26] MEDS: LEVETIRACETAM 500MG PREMIX 100 ML IV SCH ×2 (08:38→21:26)
[2019-10-26] MEDS: TAMSULOSIN HCL 0.4MG SR CAPSULE PO SCH ×2 (08:38→21:25)
[2019-10-26] MEDS: METOPROLOL TARTRATE 25MG TABLET PO SCH ×2 (08:38→21:25)
[2019-10-26] MEDS: DUTASTERIDE 0.5MG CAPSULE PO SCH (08:38)
[2019-10-26] MEDS: LORAZEPAM 2MG/ML CPJ IV PRN ×2 (08:57→15:58)
[2019-10-26] MEDS ORDERED: AMIODARONE HCL 900 MG in DEXT 5% WATER 482 ML IV SCH (09:15)
[2019-10-26] MEDS: INSULIN GLARGINE UD 100 UNITS/ML SYR SUBCUT SCH (10:00)
[2019-10-26] MEDS: FERROUS SULFATE 325MG TABLET PO SCH (17:49)
[2019-10-26] MEDS: ENOXAPARIN 120MG/0.8ML SYR SUBCUT SCH (18:31)
[2019-10-26] MEDS: QUETIAPINE FUMARATE 25MG TABLET PO SCH (21:25)
[2019-10-26] MEDS: LACTULOSE 20G/30ML UDC PO PRN (21:25)
[2019-10-26] MEDS: ATORVASTATIN CALCIUM 40MG TABLET PO SCH (21:25)
[2019-10-27] VITALS (19 sets, daily range): BP systolic 92–150; BP diastolic 58–89
[2019-10-27] MEDS: METOCLOPRAMIDE HCL 10MG/2ML VIAL IV SCH ×4 (00:08→17:45)
[2019-10-27] MEDS: BLOOD SUGAR DIAGNOSTIC STRIP TEST SCH ×3 (00:09→12:00)
[2019-10-27] MEDS: IPRATROPIUM BROMIDE (0.02%) 0.5MG/2.5ML NEB HHN SCH ×5 (02:24→23:59)
[2019-10-27] MEDS: INSULIN LISPRO 100 UNITS/ML SUBCUT SCH ×3 (06:00→12:00)
[2019-10-27] MEDS: ENOXAPARIN 120MG/0.8ML SYR SUBCUT SCH ×2 (06:42→17:48)
[2019-10-27] MEDS: ATROPINE SULFATE 1% OPHTH 2ML SL SCH ×3 (06:44→21:42)
[2019-10-27] MEDS: HYDRALAZINE HCL 50MG TABLET NG SCH ×3 (06:44→22:00)
[2019-10-27] MEDS: SODIUM CHLORIDE 0.9% 1,000 ML IV SCH ×3 (06:45→21:34)
[2019-10-27 09:17] LABS: HEMATOCRIT 27.7 % (42.0-52.0); HEMOGLOBIN 8.2 g/dL (14.0-18.0); MEAN CORPUSCULAR HEMOGLOBIN 21.6 pg (28.0-32.0); MEAN CORPUSCULAR VOLUME 73.4 fL (80.0-94.0); PLATELET 346 x1000/uL (130-400); RED BLOOD CELL COUNT 3.78 mill/uL (4.7-6.1); RED CELL DISTRIBUTION WIDTH 20.4 % (11.6-14.6)
[2019-10-27] MEDS: LEVETIRACETAM 500MG PREMIX 100 ML IV SCH ×2 (09:20→21:38)
[2019-10-27] MEDS: FERROUS SULFATE 325MG TABLET PO SCH ×3 (09:20→17:45)
[2019-10-27] MEDS: QUETIAPINE FUMARATE 25MG TABLET PO SCH ×2 (09:20→21:39)
[2019-10-27] MEDS: TAMSULOSIN HCL 0.4MG SR CAPSULE PO SCH ×2 (09:21→21:39)
[2019-10-27] MEDS: DILTIAZEM HCL 60MG TABLET PO SCH ×4 (09:22→21:00)
[2019-10-27] MEDS: METOPROLOL TARTRATE 25MG TABLET PO SCH ×2 (09:22→21:00)
[2019-10-27] MEDS: ACETAMINOPHEN 325MG TABLET PO PRN (09:23)
[2019-10-27 09:29] LABS: CHLORIDE 109 mEq/L (98-107)
[2019-10-27] MEDS: DUTASTERIDE 0.5MG CAPSULE PO SCH (10:21)
[2019-10-27] MEDS: INSULIN GLARGINE UD 100 UNITS/ML SYR SUBCUT SCH (10:23)
[2019-10-27] MEDS: CYANOCOBALAMIN 1000MCG/ML VIAL IM SCH (10:34)
[2019-10-27] MEDS ORDERED: BISACODYL 10MG SUPP PR NR (11:15)
[2019-10-27] MEDS: PIPERACILLIN/TAZOBACTAM 3.375 G in DEXT 5% WATER 100 ML IV SCH ×2 (12:00→17:52)
[2019-10-27] MEDS: AMIODARONE HCL 200 MG TABLET PO SCH (13:54)
[2019-10-27] MEDS: ATORVASTATIN CALCIUM 40MG TABLET PO SCH (21:39)
[2019-10-27] MEDS: ACETYLCYSTEINE 100MG/ML 10% VIAL 4ML INH SCH (23:59)
[2019-10-28] VITALS (12 sets, daily range): BP systolic 93–133; BP diastolic 56–82
[2019-10-28] MEDS: PIPERACILLIN/TAZOBACTAM 3.375 G in DEXT 5% WATER 100 ML IV SCH ×4 (00:07→18:10)
[2019-10-28] MEDS: METOCLOPRAMIDE HCL 10MG/2ML VIAL IV SCH ×4 (00:07→18:09)
[2019-10-28] MEDS: DILTIAZEM HCL 125 MG in DEXT 5% WATER 100 ML IV PRN (03:26)
[2019-10-28] MEDS: ENOXAPARIN 120MG/0.8ML SYR SUBCUT SCH ×2 (05:54→18:10)
[2019-10-28] MEDS: ATROPINE SULFATE 1% OPHTH 2ML SL SCH ×3 (05:54→21:06)
[2019-10-28] MEDS: HYDRALAZINE HCL 50MG TABLET NG SCH ×3 (05:55→21:05)
[2019-10-28] MEDS ORDERED: DEXTROSE 50% WATER 50ML SYRINGE IV PRN (08:45)
[2019-10-28] MEDS: ACETYLCYSTEINE 100MG/ML 10% VIAL 4ML INH SCH ×2 (08:53→15:28)
[2019-10-28] MEDS: IPRATROPIUM BROMIDE (0.02%) 0.5MG/2.5ML NEB HHN SCH ×3 (08:53→19:56)
[2019-10-28] MEDS: SODIUM CHLORIDE 0.9% 1,000 ML IV SCH (09:00)
[2019-10-28] MEDS: DOCUSATE SODIUM SUGAR FREE 100MG/10ML UDC NG PRN (09:03)
[2019-10-28] MEDS: LEVETIRACETAM 500MG PREMIX 100 ML IV SCH ×2 (09:03→20:26)
[2019-10-28] MEDS: DUTASTERIDE 0.5MG CAPSULE PO SCH (09:04)
[2019-10-28] MEDS: AMIODARONE HCL 200 MG TABLET PO SCH (09:04)
[2019-10-28] MEDS: TAMSULOSIN HCL 0.4MG SR CAPSULE PO SCH ×2 (09:05→20:27)
[2019-10-28] MEDS: FERROUS SULFATE 325MG TABLET PO SCH ×3 (09:05→18:09)
[2019-10-28] MEDS: ACETAMINOPHEN 650MG/20.3ML UDC PO PRN (09:06)
[2019-10-28] MEDS: DILTIAZEM HCL 60MG TABLET PO SCH ×4 (09:10→20:27)
[2019-10-28] MEDS: QUETIAPINE FUMARATE 25MG TABLET PO SCH ×2 (09:14→20:27)
[2019-10-28] MEDS: METOPROLOL TARTRATE 25MG TABLET PO SCH ×2 (09:14→20:27)
[2019-10-28] MEDS: INSULIN GLARGINE UD 100 UNITS/ML SYR SUBCUT SCH (11:18)
[2019-10-28] MEDS: BLOOD SUGAR DIAGNOSTIC STRIP TEST SCH ×3 (11:32→20:28)
[2019-10-28] MEDS: INSULIN LISPRO 100 UNITS/ML SUBCUT SCH ×3 (12:21→20:33)
[2019-10-29] VITALS (11 sets, daily range): BP systolic 109–134; BP diastolic 61–77
[2019-10-29] MEDS: IPRATROPIUM BROMIDE (0.02%) 0.5MG/2.5ML NEB HHN SCH ×4 (01:27→20:54)
[2019-10-29] MEDS: ACETYLCYSTEINE 100MG/ML 10% VIAL 4ML INH SCH ×3 (01:27→14:31)
[2019-10-29] MEDS: SODIUM CHLORIDE 0.9% 1,000 ML IV SCH ×2 (04:44→12:49)
[2019-10-29] MEDS: METOCLOPRAMIDE HCL 10MG/2ML VIAL IV SCH ×5 (05:15→23:16)
[2019-10-29] MEDS: PIPERACILLIN/TAZOBACTAM 3.375 G in DEXT 5% WATER 100 ML IV SCH ×6 (05:15→23:17)
[2019-10-29] MEDS: ENOXAPARIN 120MG/0.8ML SYR SUBCUT SCH ×2 (05:17→17:39)
[2019-10-29] MEDS: HYDRALAZINE HCL 50MG TABLET NG SCH ×3 (05:17→22:00)
[2019-10-29] MEDS: ATROPINE SULFATE 1% OPHTH 2ML SL SCH ×3 (05:18→22:42)
[2019-10-29] MEDS: BLOOD SUGAR DIAGNOSTIC STRIP TEST SCH ×4 (07:30→21:00)
[2019-10-29] MEDS: DUTASTERIDE 0.5MG CAPSULE PO SCH (09:01)
[2019-10-29] MEDS: QUETIAPINE FUMARATE 25MG TABLET PO SCH ×2 (09:01→22:40)
[2019-10-29] MEDS: FERROUS SULFATE 325MG TABLET PO SCH ×3 (09:01→17:38)
[2019-10-29] MEDS: METOPROLOL TARTRATE 25MG TABLET PO SCH ×2 (09:01→21:00)
[2019-10-29] MEDS: LEVETIRACETAM 500MG PREMIX 100 ML IV SCH ×2 (09:02→22:39)
[2019-10-29] MEDS: DILTIAZEM HCL 60MG TABLET PO SCH ×4 (09:02→22:40)
[2019-10-29] MEDS: TAMSULOSIN HCL 0.4MG SR CAPSULE PO SCH ×2 (09:02→22:41)
[2019-10-29] MEDS: INSULIN LISPRO 100 UNITS/ML SUBCUT SCH ×4 (09:03→21:00)
[2019-10-29] MEDS: AMIODARONE HCL 200 MG TABLET PO SCH (09:07)
[2019-10-29] MEDS: INSULIN GLARGINE UD 100 UNITS/ML SYR SUBCUT SCH (09:58)
[2019-10-30] VITALS (15 sets, daily range): BP systolic 100–145; BP diastolic 60–83
[2019-10-30] MEDS: IPRATROPIUM BROMIDE (0.02%) 0.5MG/2.5ML NEB HHN SCH ×4 (00:47→19:50)
[2019-10-30] MEDS: ACETYLCYSTEINE 100MG/ML 10% VIAL 4ML INH SCH ×3 (00:47→13:59)
[2019-10-30] MEDS: METOCLOPRAMIDE HCL 10MG/2ML VIAL IV SCH ×4 (05:11→23:15)
[2019-10-30] MEDS: PIPERACILLIN/TAZOBACTAM 3.375 G in DEXT 5% WATER 100 ML IV SCH ×4 (05:11→23:15)
[2019-10-30] MEDS: ENOXAPARIN 120MG/0.8ML SYR SUBCUT SCH ×2 (05:12→17:02)
[2019-10-30] MEDS: ATROPINE SULFATE 1% OPHTH 2ML SL SCH ×3 (05:12→21:11)
[2019-10-30] MEDS: HYDRALAZINE HCL 50MG TABLET NG SCH ×3 (06:00→21:11)
[2019-10-30] MEDS: DILTIAZEM HCL 125 MG in DEXT 5% WATER 100 ML IV PRN (07:06)
[2019-10-30] MEDS: BLOOD SUGAR DIAGNOSTIC STRIP TEST SCH ×4 (07:30→21:10)
[2019-10-30] MEDS: DILTIAZEM HCL 60MG TABLET PO SCH (09:00)
[2019-10-30] MEDS ORDERED: DIGOXIN 500MCG/2ML AMP IV NR (09:19)
[2019-10-30] MEDS: INSULIN GLARGINE UD 100 UNITS/ML SYR SUBCUT SCH (09:47)
[2019-10-30] MEDS: LEVETIRACETAM 500MG PREMIX 100 ML IV SCH ×2 (09:48→21:10)
[2019-10-30] MEDS: TAMSULOSIN HCL 0.4MG SR CAPSULE PO SCH (09:48)
[2019-10-30] MEDS: METOPROLOL TARTRATE 25MG TABLET PO SCH (09:49)
[2019-10-30] MEDS: DUTASTERIDE 0.5MG CAPSULE PO SCH (09:49)
[2019-10-30] MEDS: FERROUS SULFATE 325MG TABLET PO SCH ×3 (09:49→17:06)
[2019-10-30] MEDS: QUETIAPINE FUMARATE 25MG TABLET PO SCH ×2 (09:49→21:10)
[2019-10-30] MEDS: INSULIN LISPRO 100 UNITS/ML SUBCUT SCH ×4 (10:06→21:24)
[2019-10-30] MEDS: AMIODARONE HCL 200 MG TABLET PO SCH (10:07)
[2019-10-30 11:13] LABS: BASOPHILS % 0.4 % (0.0-2.0); EOSINOPHILS % 0.4 % (0.0-5.0); HEMATOCRIT. 24.7 % (42.0-52.0); HEMOGLOBIN. 7.1 g/dL (14.0-18.0); LYMPHOCYTES % 10.1 % (20.0-50.0); MEAN CORPUSCULAR HEMOGLOBIN 21.4 pg (28.0-32.0); MEAN CORPUSCULAR VOLUME 74.1 fL (80.0-94.0); MEAN PLATELET VOLUME 8.6 fl (7.4-10.4); MONOCYTES % 11.5 % (2.0-8.0); NEUTROPHILS % 77.6 % (40.0-76.0); PLATELET 389 x1000/uL (130-400); RED BLOOD CELL COUNT 3.33 mill/uL (4.7-6.1); RED CELL DISTRIBUTION WIDTH 21.1 % (11.6-14.6)
[2019-10-30] MEDS ORDERED: ONDANSETRON HCL 4MG/2ML INJ IV PRN (12:15)
[2019-10-30] MEDS ORDERED: DIGOXIN 500MCG/2ML AMP IV SCH (13:00)
[2019-10-30 17:00] LABS: HEMATOCRIT 25.2 % (42.0-52.0); HEMOGLOBIN 7.3 g/dL (14.0-18.0)
[2019-10-30] MEDS: METOPROLOL TARTRATE 50MG TABLET PO SCH (21:00)
[2019-10-30] MEDS: AMIODARONE HCL 900 MG in DEXT 5% WATER 482 ML IV PRN (23:29)
[2019-10-31] VITALS (14 sets, daily range): BP systolic 97–138; BP diastolic 35–81
[2019-10-31] MEDS: IPRATROPIUM BROMIDE (0.02%) 0.5MG/2.5ML NEB HHN SCH ×4 (02:00→20:46)
[2019-10-31] MEDS: ACETYLCYSTEINE 100MG/ML 10% VIAL 4ML INH SCH ×3 (02:01→13:59)
[2019-10-31] MEDS: ENOXAPARIN 120MG/0.8ML SYR SUBCUT SCH ×2 (05:45→17:41)
[2019-10-31] MEDS: PIPERACILLIN/TAZOBACTAM 3.375 G in DEXT 5% WATER 100 ML IV SCH ×2 (05:57→13:02)
[2019-10-31] MEDS: METOCLOPRAMIDE HCL 10MG/2ML VIAL IV SCH ×3 (05:57→18:00)
[2019-10-31] MEDS: HYDRALAZINE HCL 50MG TABLET NG SCH ×2 (05:58→13:13)
[2019-10-31] MEDS: ATROPINE SULFATE 1% OPHTH 2ML SL SCH ×3 (05:58→20:52)
[2019-10-31] MEDS: DILTIAZEM HCL 125 MG in DEXT 5% WATER 100 ML IV PRN (05:59)
[2019-10-31 06:56] LABS: BASOPHILS % 0.3 % (0.0-2.0); EOSINOPHILS % 0.8 % (0.0-5.0); HEMATOCRIT. 27.2 % (42.0-52.0); LYMPHOCYTES % 8.8 % (20.0-50.0); MEAN CORPUSCULAR HEMOGLOBIN 21.6 pg (28.0-32.0); MEAN CORPUSCULAR VOLUME 73.8 fL (80.0-94.0); MEAN PLATELET VOLUME 8.3 fl (7.4-10.4); MONOCYTES % 11.6 % (2.0-8.0); NEUTROPHILS % 78.5 % (40.0-76.0); PLATELET 431 x1000/uL (130-400); RED BLOOD CELL COUNT 3.69 mill/uL (4.7-6.1); RED CELL DISTRIBUTION WIDTH 20.6 % (11.6-14.6)
[2019-10-31] MEDS: BLOOD SUGAR DIAGNOSTIC STRIP TEST SCH ×4 (07:30→20:47)
[2019-10-31] MEDS: INSULIN LISPRO 100 UNITS/ML SUBCUT SCH ×4 (08:00→20:47)
[2019-10-31] MEDS: ACETAMINOPHEN 650MG/20.3ML UDC PO PRN (10:04)
[2019-10-31] MEDS: METOPROLOL TARTRATE 50MG TABLET PO SCH ×2 (10:05→20:52)
[2019-10-31] MEDS: QUETIAPINE FUMARATE 25MG TABLET PO SCH ×2 (10:05→20:47)
[2019-10-31] MEDS: LEVETIRACETAM 500MG PREMIX 100 ML IV SCH ×2 (10:05→20:46)
[2019-10-31] MEDS: FERROUS SULFATE 325MG TABLET PO SCH ×3 (10:06→17:41)
[2019-10-31] MEDS: MEROPENEM-0.9% SODIUM CHLORIDE 50 ML IV SCH (18:00)
[2019-10-31] MEDS ORDERED: VANCOMYCIN 2,000 MG in DEXT 5% WATER 500 ML IV SCH (18:00)
[2019-10-31] MEDS: AMIODARONE HCL 900 MG in DEXT 5% WATER 482 ML IV PRN (20:22)
[2019-11-01] VITALS (12 sets, daily range): BP systolic 96–137; BP diastolic 61–88
[2019-11-01] MEDS: METOCLOPRAMIDE HCL 10MG/2ML VIAL IV SCH ×4 (01:10→17:22)
[2019-11-01] MEDS: MEROPENEM-0.9% SODIUM CHLORIDE 50 ML IV SCH ×3 (01:11→17:22)
[2019-11-01] MEDS: ACETYLCYSTEINE 100MG/ML 10% VIAL 4ML INH SCH ×2 (02:35→08:50)
[2019-11-01] MEDS: IPRATROPIUM BROMIDE (0.02%) 0.5MG/2.5ML NEB HHN SCH ×3 (02:35→20:17)
[2019-11-01] MEDS: ENOXAPARIN 120MG/0.8ML SYR SUBCUT SCH ×2 (06:00→17:16)
[2019-11-01] MEDS: ATROPINE SULFATE 1% OPHTH 2ML SL SCH ×3 (06:00→20:51)
[2019-11-01 07:19] LABS: BASOPHILS % 0.8 % (0.0-2.0); EOSINOPHILS % 1.1 % (0.0-5.0); HEMATOCRIT. 25.6 % (42.0-52.0); HEMOGLOBIN. 7.5 g/dL (14.0-18.0); LYMPHOCYTES % 12.2 % (20.0-50.0); MEAN CORPUSCULAR HEMOGLOBIN 21.5 pg (28.0-32.0); MEAN CORPUSCULAR VOLUME 73.4 fL (80.0-94.0); MONOCYTES % 9.5 % (2.0-8.0); NEUTROPHILS % 76.4 % (40.0-76.0); PLATELET 402 x1000/uL (130-400); RED BLOOD CELL COUNT 3.49 mill/uL (4.7-6.1); RED CELL DISTRIBUTION WIDTH 20.4 % (11.6-14.6)
[2019-11-01] MEDS: BLOOD SUGAR DIAGNOSTIC STRIP TEST SCH ×4 (07:30→20:37)
[2019-11-01 07:36] LABS: CHLORIDE 103 mEq/L (98-107)
[2019-11-01 07:56] LABS: CREATINE KINASE 264 IU/L (39-308)
[2019-11-01] MEDS: INSULIN LISPRO 100 UNITS/ML SUBCUT SCH ×4 (08:00→20:44)
[2019-11-01] MEDS ORDERED: VANCOMYCIN 1 G PREMIX 200 ML IV SCH (09:00)
[2019-11-01] MEDS: FERROUS SULFATE 325MG TABLET PO SCH ×3 (09:05→17:22)
[2019-11-01] MEDS: QUETIAPINE FUMARATE 25MG TABLET PO SCH ×2 (09:05→20:37)
[2019-11-01] MEDS: METOPROLOL TARTRATE 50MG TABLET PO SCH ×2 (09:05→20:37)
[2019-11-01] MEDS: LEVETIRACETAM 500MG PREMIX 100 ML IV SCH ×2 (09:52→20:37)
[2019-11-01] MEDS: VANCOMYCIN 1500MG in DEXTROSE 5% WATER 250ML IV SCH (11:25)
[2019-11-01] MEDS: DILTIAZEM HCL 125 MG in DEXT 5% WATER 100 ML IV PRN (19:52)
[2019-11-02] VITALS (14 sets, daily range): BP systolic 106–131; BP diastolic 53–78
[2019-11-02] MEDS: METOCLOPRAMIDE HCL 10MG/2ML VIAL IV SCH ×5 (01:03→23:41)
[2019-11-02] MEDS: MEROPENEM-0.9% SODIUM CHLORIDE 50 ML IV SCH ×3 (01:03→17:41)
[2019-11-02] MEDS: IPRATROPIUM BROMIDE (0.02%) 0.5MG/2.5ML NEB HHN SCH ×4 (01:20→20:46)
[2019-11-02] MEDS: AMIODARONE HCL 900 MG in DEXT 5% WATER 482 ML IV PRN (03:37)
[2019-11-02] MEDS: ATROPINE SULFATE 1% OPHTH 2ML SL SCH ×3 (05:34→21:00)
[2019-11-02] MEDS: VANCOMYCIN 1500MG in DEXTROSE 5% WATER 250ML IV SCH ×2 (05:34→21:00)
[2019-11-02] MEDS: ENOXAPARIN 120MG/0.8ML SYR SUBCUT SCH ×2 (05:35→17:37)
[2019-11-02 06:10] LABS: BASOPHILS % 0.5 % (0.0-2.0); EOSINOPHILS % 1.5 % (0.0-5.0); HEMATOCRIT. 27.5 % (42.0-52.0); LYMPHOCYTES % 11.6 % (20.0-50.0); MEAN CORPUSCULAR HEMOGLOBIN 21.4 pg (28.0-32.0); MEAN CORPUSCULAR VOLUME 74.1 fL (80.0-94.0); MEAN PLATELET VOLUME 7.8 fl (7.4-10.4); MONOCYTES % 10.8 % (2.0-8.0); NEUTROPHILS % 75.6 % (40.0-76.0); PLATELET 391 x1000/uL (130-400); RED BLOOD CELL COUNT 3.72 mill/uL (4.7-6.1); RED CELL DISTRIBUTION WIDTH 20.5 % (11.6-14.6)
[2019-11-02] MEDS: BLOOD SUGAR DIAGNOSTIC STRIP TEST SCH ×4 (08:28→20:59)
[2019-11-02] MEDS: LEVETIRACETAM 500MG PREMIX 100 ML IV SCH ×2 (08:37→20:59)
[2019-11-02] MEDS: METOPROLOL TARTRATE 50MG TABLET PO SCH ×2 (08:38→20:59)
[2019-11-02] MEDS: FERROUS SULFATE 325MG TABLET PO SCH ×3 (08:38→17:41)
[2019-11-02] MEDS: QUETIAPINE FUMARATE 25MG TABLET PO SCH ×2 (08:38→20:59)
[2019-11-02] MEDS: INSULIN LISPRO 100 UNITS/ML SUBCUT SCH ×4 (08:42→20:59)
[2019-11-03] VITALS (19 sets, daily range): BP systolic 106–129; BP diastolic 47–74
[2019-11-03] MEDS: MEROPENEM-0.9% SODIUM CHLORIDE 50 ML IV SCH ×3 (01:19→18:30)
[2019-11-03] MEDS: IPRATROPIUM BROMIDE (0.02%) 0.5MG/2.5ML NEB HHN SCH ×3 (02:29→20:23)
[2019-11-03] MEDS: ENOXAPARIN 120MG/0.8ML SYR SUBCUT SCH (05:53)
[2019-11-03] MEDS: ATROPINE SULFATE 1% OPHTH 2ML SL SCH ×3 (05:58→23:39)
[2019-11-03] MEDS: METOCLOPRAMIDE HCL 10MG/2ML VIAL IV SCH ×4 (05:58→23:39)
[2019-11-03 07:28] LABS: BASOPHILS % 0.5 % (0.0-2.0); EOSINOPHILS % 1.8 % (0.0-5.0); HEMATOCRIT. 26.5 % (42.0-52.0); HEMOGLOBIN. 7.5 g/dL (14.0-18.0); LYMPHOCYTES % 10.9 % (20.0-50.0); MEAN CORPUSCULAR HEMOGLOBIN 21.3 pg (28.0-32.0); MEAN CORPUSCULAR VOLUME 74.8 fL (80.0-94.0); MEAN PLATELET VOLUME 7.9 fl (7.4-10.4); MONOCYTES % 10.4 % (2.0-8.0); NEUTROPHILS % 76.4 % (40.0-76.0); PLATELET 380 x1000/uL (130-400); RED BLOOD CELL COUNT 3.54 mill/uL (4.7-6.1); RED CELL DISTRIBUTION WIDTH 20.6 % (11.6-14.6)
[2019-11-03] MEDS: BLOOD SUGAR DIAGNOSTIC STRIP TEST SCH ×4 (07:30→20:46)
[2019-11-03] MEDS: INSULIN LISPRO 100 UNITS/ML SUBCUT SCH ×4 (08:00→20:46)
[2019-11-03] MEDS: METOPROLOL TARTRATE 50MG TABLET PO SCH ×2 (09:00→20:46)
[2019-11-03] MEDS: LEVETIRACETAM 500MG PREMIX 100 ML IV SCH (09:28)
[2019-11-03] MEDS: CYANOCOBALAMIN 1000MCG/ML VIAL IM SCH (09:28)
[2019-11-03] MEDS: FERROUS SULFATE 325MG TABLET PO SCH ×3 (09:29→17:22)
[2019-11-03] MEDS: QUETIAPINE FUMARATE 25MG TABLET PO SCH ×2 (09:29→20:46)
[2019-11-03] MEDS: VANCOMYCIN 1500MG in DEXTROSE 5% WATER 250ML IV SCH (16:00)
[2019-11-04] VITALS (12 sets, daily range): BP systolic 112–137; BP diastolic 60–73
[2019-11-04] MEDS: IPRATROPIUM BROMIDE (0.02%) 0.5MG/2.5ML NEB HHN SCH ×5 (00:45→20:53)
[2019-11-04] MEDS: MEROPENEM-0.9% SODIUM CHLORIDE 50 ML IV SCH ×3 (04:07→17:49)
[2019-11-04] MEDS: ATROPINE SULFATE 1% OPHTH 2ML SL SCH ×3 (06:16→21:58)
[2019-11-04] MEDS: METOCLOPRAMIDE HCL 10MG/2ML VIAL IV SCH ×3 (06:16→17:49)
[2019-11-04] MEDS: INSULIN LISPRO 100 UNITS/ML SUBCUT SCH ×4 (08:00→21:00)
[2019-11-04] MEDS: BLOOD SUGAR DIAGNOSTIC STRIP TEST SCH ×4 (08:09→21:58)
[2019-11-04] MEDS: QUETIAPINE FUMARATE 25MG TABLET PO SCH ×2 (08:30→21:57)
[2019-11-04] MEDS: FERROUS SULFATE 325MG TABLET PO SCH ×3 (08:30→17:49)
[2019-11-04] MEDS: METOPROLOL TARTRATE 50MG TABLET PO SCH ×2 (08:31→21:00)
[2019-11-04] MEDS: VANCOMYCIN 1500MG in DEXTROSE 5% WATER 250ML IV SCH (09:34)
[2019-11-04 09:35] LABS: HEMATOCRIT 27.9 % (42.0-52.0); HEMOGLOBIN 8.4 g/dL (14.0-18.0); MEAN CORPUSCULAR HEMOGLOBIN 22.3 pg (28.0-32.0); MEAN CORPUSCULAR VOLUME 73.8 fL (80.0-94.0); PLATELET 349 x1000/uL (130-400); RED BLOOD CELL COUNT 3.78 mill/uL (4.7-6.1)
[2019-11-04 09:39] LABS: CHLORIDE 99 mEq/L (98-107)
[2019-11-05] VITALS (11 sets, daily range): BP systolic 114–133; BP diastolic 55–73
[2019-11-05] MEDS: METOCLOPRAMIDE HCL 10MG/2ML VIAL IV SCH ×4 (00:20→17:53)
[2019-11-05] MEDS: MEROPENEM-0.9% SODIUM CHLORIDE 50 ML IV SCH ×3 (02:08→17:53)
[2019-11-05] MEDS: ATROPINE SULFATE 1% OPHTH 2ML SL SCH ×2 (05:31→17:55)
[2019-11-05] MEDS: BLOOD SUGAR DIAGNOSTIC STRIP TEST SCH ×3 (07:30→17:48)
[2019-11-05] MEDS: INSULIN LISPRO 100 UNITS/ML SUBCUT SCH ×3 (08:00→17:48)
[2019-11-05] MEDS: IPRATROPIUM BROMIDE (0.02%) 0.5MG/2.5ML NEB HHN SCH ×2 (08:03→15:34)
[2019-11-05] MEDS: QUETIAPINE FUMARATE 25MG TABLET PO SCH (09:48)
[2019-11-05] MEDS: FERROUS SULFATE 325MG TABLET PO SCH ×3 (09:48→17:53)
[2019-11-05] MEDS: METOPROLOL TARTRATE 50MG TABLET PO SCH (09:49)
[2019-11-05 10:34] LABS: BASOPHILS % 1.5 % (0.0-2.0); EOSINOPHILS % 3.5 % (0.0-5.0); HEMATOCRIT. 28.4 % (42.0-52.0); HEMOGLOBIN. 8.4 g/dL (14.0-18.0); LYMPHOCYTES % 11.7 % (20.0-50.0); MEAN CORPUSCULAR HEMOGLOBIN 22.2 pg (28.0-32.0); MEAN CORPUSCULAR VOLUME 74.9 fL (80.0-94.0); MEAN PLATELET VOLUME 7.8 fl (7.4-10.4); MONOCYTES % 9.5 % (2.0-8.0); NEUTROPHILS % 73.8 % (40.0-76.0); PLATELET 355 x1000/uL (130-400); RED BLOOD CELL COUNT 3.79 mill/uL (4.7-6.1); RED CELL DISTRIBUTION WIDTH 21.4 % (11.6-14.6)
[2019-11-05] MEDS: DOCUSATE SODIUM SUGAR FREE 100MG/10ML UDC NG SCH ×2 (12:55→17:53)
== END 2019-11-05 19:30 | disposition short-term general hospital (02) | DRG 5 ==
LOC: ER 04:14 → MICUSO 05:03 → SUPCPDRO 09:33 → ENRESERV 11:20 → CVICU 10-22 02:20 → 5EST 10-22 14:45
PROVIDERS: ADMIT Internal Medicine; ATTEND Internal Medicine
PROC: 3E03317 Introduction of Other Thrombolytic into Peripheral Vein, Percutaneous Approach (ICD-10-PCS; 2019-09-29)
PROC: 30233N1 Transfusion of Nonautologous Red Blood Cells into Peripheral Vein, Percutaneous Approach (ICD-10-PCS; 2019-10-03)
PROC: 5A1955Z Respiratory Ventilation, Greater than 96 Consecutive Hours (ICD-10-PCS; principal; 2019-10-06)
PROC: 5A12012 Performance of Cardiac Output, Single, Manual (ICD-10-PCS; 2019-10-06)
PROC: 06HY33Z Insertion of Infusion Device into Lower Vein, Percutaneous Approach (ICD-10-PCS; 2019-10-06)
PROC: 4A10X4Z Monitoring of Central Nervous Electrical Activity, External Approach (ICD-10-PCS; 2019-10-07)
PROC: 4A10X4Z Monitoring of Central Nervous Electrical Activity, External Approach (ICD-10-PCS; 2019-10-13)
PROC: 0DH63UZ Insertion of Feeding Device into Stomach, Percutaneous Approach (ICD-10-PCS; 2019-10-17)
PROC: 0B113F4 Bypass Trachea to Cutaneous with Tracheostomy Device, Percutaneous Approach (ICD-10-PCS; 2019-10-17)
PROC: 0DB68ZX Excision of Stomach, Via Natural or Artificial Opening Endoscopic, Diagnostic (ICD-10-PCS; 2019-10-17)
DX: A41.9 Sepsis, unspecified organism (principal); J69.0 Pneumonitis due to inhalation of food and vomit; R65.21 Severe sepsis with septic shock; G92 Toxic encephalopathy; I63.212 Cerebral infarction due to unspecified occlusion or stenosis of left vertebral artery; I63.511 Cerebral infarction due to unspecified occlusion or stenosis of right middle cerebral artery; I96 Gangrene, not elsewhere classified; I13.2 Hypertensive heart and chronic kidney disease with heart failure and with stage 5 chronic kidney disease, or end stage renal disease; N17.9 Acute kidney failure, unspecified; E46 Unspecified protein-calorie malnutrition; I49.01 Ventricular fibrillation; I46.9 Cardiac arrest, cause unspecified; R13.12 Dysphagia, oropharyngeal phase; J96.00 Acute respiratory failure, unspecified whether with hypoxia or hypercapnia; E11.65 Type 2 diabetes mellitus with hyperglycemia; G81.94 Hemiplegia, unspecified affecting left nondominant side; I25.2 Old myocardial infarction; E78.00 Pure hypercholesterolemia, unspecified; D64.9 Anemia, unspecified; R33.9 Retention of urine, unspecified; I50.32 Chronic diastolic (congestive) heart failure; E53.8 Deficiency of other specified B group vitamins; I25.10 Atherosclerotic heart disease of native coronary artery without angina pectoris; M62.82 Rhabdomyolysis; K29.70 Gastritis, unspecified, without bleeding; K31.7 Polyp of stomach and duodenum; D50.9 Iron deficiency anemia, unspecified; D68.59 Other primary thrombophilia; D69.6 Thrombocytopenia, unspecified; E11.22 Type 2 diabetes mellitus with diabetic chronic kidney disease; E66.9 Obesity, unspecified; N18.6 End stage renal disease; N39.0 Urinary tract infection, site not specified; E11.52 Type 2 diabetes mellitus with diabetic peripheral angiopathy with gangrene; L97.929 Non-pressure chronic ulcer of unspecified part of left lower leg with unspecified severity; I48.20 Chronic atrial fibrillation, unspecified; Z79.82 Long term (current) use of aspirin; Z79.1 Long term (current) use of non-steroidal anti-inflammatories (NSAID); Z79.899 Other long term (current) drug therapy; Z68.41 Body mass index [BMI] 40.0-44.9, adult; Z99.11 Dependence on respirator [ventilator] status; Z79.01 Long term (current) use of anticoagulants; Z78.1 Physical restraint status; Z85.46 Personal history of malignant neoplasm of prostate; Z89.611 Acquired absence of right leg above knee; Z82.3 Family history of stroke; E78.5 Hyperlipidemia, unspecified; R47.81 Slurred speech; R29.810 Facial weakness; R47.01 Aphasia; R47.1 Dysarthria and anarthria; B00.1 Herpesviral vesicular dermatitis; K13.1 Cheek and lip biting; I48.0 Paroxysmal atrial fibrillation; R41.4 Neurologic neglect syndrome
CPT/HCPCS: 36415; 36600; 70544; 70553; 71045; 74018; 76700; 80048; 80053; 80061; 80076; 80202; 80305; 80320; 81003; 82375; 82550; 82553; 82607; 82728; 82746; 82805; 82962; 83036; 83540; 83550; 83605; 83721; 83735; 84100; 84439; 84443; 84478; 84481; 84484; 85014; 85018; 85025; 85027; 86850; 86900; 86920; 87070; 88305; 88312; 88313; 92610; 93005; 93306; 93880; 93970; 94003; 94640; 97110; 97162; 97164; 97166; 97168; 97530; 99291; 99292; C9113; J0282; J0690; J0692; J1160; J1650; J1815; J1953; J2060; J2185; J2250; J2270; J2405; J2543; J2704; J2765; J2997; J3010; J3370; J3420; J3490; J7030; J7050; J7060; J7608; P9016; G0480